=== PATIENT | male | born 1980 | race Caucasian/White ===

== ENCOUNTER 2023-08-05 17:35 | Emergency (ER) | payer OTHER, SELFPAY ==
--- NOTE | ~2023-08-05 | CT_ITS ---
CT HEAD WITHOUT IV CONTRAST CT MAXILLOFACIAL WITHOUT IV CONTRAST INDICATION: Seizure. Fall. Left jaw pain. COMPARISON: None available TECHNIQUE: Multidetector CT acquisitions of the head and maxillofacial region were obtained without IV contrast. Multiplanar reformats were acquired and utilized for image interpretation. This CT examination was performed using dose optimization techniques as appropriate, variously including the following: *Automated exposure control *Adjustment of mA and/or kV according to patient size (this includes techniques or standardized protocols for targeted exams where dose is matched to indication/reason for exam; i.e. extremities or head) *Use of iterative reconstruction technique FINDINGS: HEAD: There is no intracranial hemorrhage, hydrocephalus, extra-axial surface collection, midline shift, or other herniation pattern. Alva to white matter differentiation is diffusely maintained without evidence of an evolved acute territorial infarct. The basilar cisterns are preserved. No significant soft tissue abnormality. No acute osseous abnormality. MAXILLOFACIAL: No acute maxillofacial fractures. There is mild mucosal thickening within the maxillary sinuses bilaterally, the left sphenoid sinus, and the left frontal sinus. Right greater than left mastoid effusions. CT/CT head/brain wo IV con IMPRESSION: - No acute intracranial findings. - No acute maxillofacial fractures.
--- NOTE | ~2023-08-05 | CT_ITS ---
CT HEAD WITHOUT IV CONTRAST CT MAXILLOFACIAL WITHOUT IV CONTRAST INDICATION: Seizure. Fall. Left jaw pain. COMPARISON: None available TECHNIQUE: Multidetector CT acquisitions of the head and maxillofacial region were obtained without IV contrast. Multiplanar reformats were acquired and utilized for image interpretation. This CT examination was performed using dose optimization techniques as appropriate, variously including the following: *Automated exposure control *Adjustment of mA and/or kV according to patient size (this includes techniques or standardized protocols for targeted exams where dose is matched to indication/reason for exam; i.e. extremities or head) *Use of iterative reconstruction technique FINDINGS: HEAD: There is no intracranial hemorrhage, hydrocephalus, extra-axial surface collection, midline shift, or other herniation pattern. Alva to white matter differentiation is diffusely maintained without evidence of an evolved acute territorial infarct. The basilar cisterns are preserved. No significant soft tissue abnormality. No acute osseous abnormality. MAXILLOFACIAL: No acute maxillofacial fractures. There is mild mucosal thickening within the maxillary sinuses bilaterally, the left sphenoid sinus, and the left frontal sinus. Right greater than left mastoid effusions. CT/CT facial bones wo IV con IMPRESSION: - No acute intracranial findings. - No acute maxillofacial fractures.
[2023-08-05 17:40] VITALS: BP 118/98; PULSE 96; O2SAT 98
[2023-08-05 17:50] VITALS: BP 116/70; PULSE 84; RESP 18; TEMP 36.6; O2SAT 96
[2023-08-05 19:05] VITALS: BP 113/67; PULSE 78; O2SAT 97
[2023-08-05 19:14] VITALS: BP 133/80; PULSE 80; RESP 14; TEMP 36.5; O2SAT 98; BMI 32.0
[2023-08-05 19:33] LABS: Glucose, Whole Blood 108 mg/dL (60-115)
--- NOTE | 2023-08-05 19:34 | ED_ITS ---
HPI - Seizure General Chief Complaint: Seizure Stated Complaint: from мария, juan carlos w head strike, loc Time Seen by Provider: 08/05/23 18:55 Source: patient and EMS Mode of arrival: EMS Limitations: no limitations History of Present Illness HPI Narrative: Patient's schizophrenia came from [facility] for having an episode of generalized tonic-clonic seizure hitting his left side of the head to the angle of the wall. Patient was at [facility] for last 2 days and was been transferred to [facility] today did not take his Keppra 1000 mg in the morning. No other injuries no tongue bite Related Data Allergies Allergy/AdvReac Type Severity Reaction Status Date / Time ibuprofen Allergy Severe Anaphylaxis Verified 08/05/23 19:54 atorvastatin AdvReac Intermediate Abdominal Verified 08/05/23 19:54 Pain Review of Systems 2 Review of Systems: Yes all other systems are reviewed and are negative [facility] Past Medical History Medical History Hyperlipidemia Seizure disorder Schizophrenia Social History Social History Advance Directives: No Advance Directives Information Provided: No Physical Exam 2 Vital Signs: Vital Signs: Last Vital Signs Temp 97.7 F 08/05/23 19:14 Pulse 78 08/05/23 22:29 Resp 14 08/05/23 19:14 BP 130/74 08/05/23 22:29 Pulse Ox 96 08/05/23 22:29 O2 Del Method Room Air 08/05/23 22:29 BMI result Body Mass Index 32.0 Appearance: Alert. Oriented X3. No acute distress. Eyes: PERRLA, No Nystagmus HEENT: Pharynx normal. Oral Mucosa moist slight bruising and tenderness on the left temporal area no tongue Neck: Normal inspection. Neck supple. CVS: Normal heart rate and rhythm. Pulses normal. Respiratory: No respiratory distress. Equal air entry bilateral, no wheezing/rales/rhonchi Abdomen: Soft and nontender. Bowel sounds are present, no mass palpable, no CVA tenderness Skin: Skin warm and dry. Normal skin color. Normal skin turgor. Extremities: No lower extremity edema. No calf tenderness Neuro: Oriented X 3. No motor deficit. Medications Administered Discontinued Medications Generic Name Dose Route Start Last Admin Trade Name Freq PRN Reason Stop Dose Admin Levetiracetam 1,000 mg in 100 mls @ 400 mls/hr 08/05/23 19:55 08/05/23 20:13 Keppra IV 08/05/23 20:09 400 mls/hr ONCE ONE Administration Morphine Sulfate 4 mg 08/05/23 19:56 08/05/23 20:12 Morphine Sulfate 4 Mg/Ml Cartridge IVPUSH 08/05/23 19:57 4 mg ONCE ONE Administration Protocol Ondansetron HCl 4 mg 08/05/23 19:56 08/05/23 20:12 Ondansetron Hcl 4 Mg/2 Ml Vial IVPUSH 08/05/23 19:57 4 mg ONCE ONE Administration Medical Decision Making Medical Decision Making [facility] Narrative: Patient with recurrence of seizure secondary to missing his dose of Keppra which was given IV in ER CT scan of the face and the head was negative for acute will discharge patient back to [facility] advised to continue give him Keppra 1000 mg twice daily as scheduled Differential Diagnosis Differential Diagnoses: The differential diagnosis associated with the presentation includes Seizure disorder/SDH/SAH/mandible fracture Lab Data [facility] Lab Attestation statement: I reviewed the patient's lab results. 08/05/23 21:07 08/05/23 21:07 Labs: Lab Results 08/05/23 08/05/23 Range/Units 19:29 21:07 WBC 5.7 (4.8-10.8) X10*3/uL RBC 4.86 (4.60-5.80) X10*6/uL Hgb 13.7 L (14.0-18.0) g/dl Hct 40.4 L (42.0-52.0) % MCV 83.1 (80.0-98.0) fL MCH 28.2 (27.0-33.0) pg MCHC 33.9 (31.0-36.0) g/dl RDW 14.3 (11.0-16.0) % Plt Count 188 (160-400) X10*3/uL MPV 9.3 L (9.4-12.4) fL Immature Gran % (Auto) 0.2 (0.0-0.4) % Neut % (Auto) 46.7 (45-73) % Lymph % (Auto) 38.1 (20-40) % [place] % (Auto) 10.1 (2-11) % Eos % (Auto) 4.2 H (0-4) % Baso % (Auto) 0.7 (0-2) % Lymph # (Auto) 2.2 (1.2-4.9) X10*3/uL [place] # (Auto) 0.6 (0.1-1.2) X10*3/uL Eos # (Auto) 0.2 (0.0-0.4) X10*3/uL Baso # (Auto) 0.0 (0.0-0.2) X10*3/uL Abs Immat Gran (auto) 0.01 (0.00-0.03) X10*3/uL Absolute Neuts (auto) 2.6 (2.0-8.3) x10*3/uL Absolute Nucleated RBC 0.000 (0.0-0.012) X10*3/uL Nucleated RBC % (auto) 0.0 (0.0-0.2) /100WBC Sodium 141 (135-145) mmol/L Potassium 4.0 (3.3-5.1) mmol/L Chloride 107 (96-108) mmol/L Carbon Dioxide 25 (22-29) mmol/L Anion Gap 13 (12-20) BUN 19 H (9-16) mg/dL Creatinine 1.13 (0.5-1.4) mg/dL Estim Creat Clear Calc 91.4 Estimated GFR > 60 POC Glucose 108 (60-115) mg/dL Random Glucose 93 (60-115) mg/dL Calcium 9.3 (8.4-10.2) mg/dL Magnesium 2.0 (1.6-2.6) mg/dL Total Bilirubin 0.3 (0.0-1.0) mg/dL AST 26 (5-37) U/L ALT 30 (0-40) U/L Alkaline Phosphatase 72 (39-117) U/L Total Protein 7.1 (6.5-8.0) g/dL Albumin 3.9 (3.5-5.0) g/dL Discharge Plan Discharge Clinical Impression: Epileptic seizure Patient Disposition: Xfer Other Transfer Details: CT scan of the head and face bone were negative labs were stable continue [facility] 1000 mg twice daily as prescribed Instructions: Epilepsy (ED) Additional Instructions: Continue medication Keppra 1000 mg twice daily as prescribed and follow-up with the neurologist/psychiatrist
[2023-08-05] MEDS: Morphine Sulfate 4 MG/ML CARTRIDGE IVPUSH (20:12)
[2023-08-05] MEDS: ondansetron HCL 4 MG/2 ML VIAL IVPUSH (20:12)
[2023-08-05] MEDS: levETIRAcetam in NaCl (iso-os) 1,000 MG/100 ML PIGGYBACK 400 MG IV (20:13)
[2023-08-05 21:12] LABS: MANUAL DIFF FLAG NO
[2023-08-05 21:13] LABS: Basophils Percent Auto 0.7 % (0-2); Eosinophils Absolute Auto 0.2 X10*3/uL (0.0-0.4); Eosinophils Percent Auto 4.2 % (0-4); Hematocrit 40.4 % (42.0-52.0); Hemoglobin 13.7 g/dl (14.0-18.0); Imm Gran Abs Auto 0.01 X10*3/uL (0.00-0.03); Imm Gran Pct Auto 0.2 % (0.0-0.4); Lymphocytes Absolute Auto 2.2 X10*3/uL (1.2-4.9); Lymphocytes Percent Auto 38.1 % (20-40); Mean Corpuscular HGB Conc 33.9 g/dl (31.0-36.0); Mean Corpuscular Hemoglobin 28.2 pg (27.0-33.0); Mean Corpuscular Volume 83.1 fL (80.0-98.0); Mean Platelet Volume 9.3 fL (9.4-12.4); Monocytes Absolute Auto 0.6 X10*3/uL (0.1-1.2); Monocytes Percent Auto 10.1 % (2-11); Neutrophils Absolute Auto 2.6 x10*3/uL (2.0-8.3); Neutrophils Percent Auto 46.7 % (45-73); Platelet Count 188 X10*3/uL (160-400); Red Blood Count 4.86 X10*6/uL (4.60-5.80); Red Cell Distribution Width 14.3 % (11.0-16.0); White Blood Count 5.7 X10*3/uL (4.8-10.8)
[2023-08-05 21:26] LABS: Alanine Aminotransferase 30 U/L (0-40); Albumin Level 3.9 g/dL (3.5-5.0); Alkaline Phosphatase 72 U/L (39-117); Anion Gap 13 (12-20); Aspartate Amino Transferase 26 U/L (5-37); Bilirubin Total 0.3 mg/dL (0.0-1.0); Blood Urea Nitrogen 19 mg/dL (9-16); Calcium 9.3 mg/dL (8.4-10.2); Carbon Dioxide 25 mmol/L (22-29); Chloride 107 mmol/L (96-108); Creatinine Clr Calc Pharmacy 91.4; Estimated Glomerular Filt Rate > 60; Glucose Random 93 mg/dL (60-115); Sodium 141 mmol/L (135-145); Total Protein 7.1 g/dL (6.5-8.0)
[2023-08-05 22:29] VITALS: BP 130/74; PULSE 78; O2SAT 96
--- NOTE | 2023-08-05 22:46 | MHC.EDTECH ---
Addendum entered by Rosie Helton 08/05/23 22:46: [id number] Original Note: Booked with [facility], ETA 230
[2023-08-05] MEDS: Acetaminophen 325 MG TABLET 650 MG PO (22:54)
[2023-08-05 23:32] VITALS: BP 112/69; PULSE 77; RESP 14; TEMP 36.6; O2SAT 96
== END 2023-08-05 23:35 | disposition other institution (70) ==
PROVIDERS: Emergency Provider Internal Medicine
DX: G40.909 Epilepsy, unspecified, not intractable, without status epilepticus (principal); E78.5 Hyperlipidemia, unspecified; Z79.899 Other long term (current) drug therapy
CPT/HCPCS: 36415; 70450; 70486; 80053; 82947; 83735; 85025; 96374; 96375; 99284; J1953; J2270; J2405

== ENCOUNTER 2023-08-07 18:45 | Emergency (ER) | payer OTHER, SELFPAY ==
--- NOTE | ~2023-08-07 | CT_ITS ---
EXAMINATION: NONCONTRAST HEAD CT NONCONTRAST CERVICAL SPINE CT INDICATION INFORMATION: Unwitnessed fall COMPARISON: 08/05/2023 TECHNIQUE: Separate noncontrast CT examinations of the head and cervical spine were performed. Coronal head CT images and coronal and sagittal cervical spine images were created at the technologist workstation. DLP: 1199 mGy-cm DOSE LOWERING TECHNIQUES: This CT examination was performed using dose optimization techniques as appropriate, variously including the following: - Automated exposure control - Adjustment of mA and/or kV according to patient size (this includes techniques or standardized protocols for targeted exams were dose is matched to indication/reason for exam; i.e. extremities or head) - Use of iterative reconstruction technique FINDINGS: Head: There is no evidence of acute intracranial hemorrhage or territorial infarction. No abnormal mass-effect or midline shift is seen. Alva to white matter differentiation is well preserved. No extra-axial fluid collections are identified. The ventricles are normal in size. There is no abnormal attenuation within the brain parenchyma. No acute fracture is seen. There is left frontal scalp soft tissue swelling. Partial opacification of the right mastoid air cells. Partial opacification of the left ethmoid air cells. Mucosal thickening of the left maxillary sinus. Cervical spine: There is anatomic alignment of the vertebral bodies and posterior elements. Vertebral body heights are maintained. Intervertebral disc spaces are preserved. No evidence of acute fracture. No prevertebral soft tissue swelling. Visualized portions of the lung apices are unremarkable. The thyroid gland is unremarkable. CT/CT cervical spine wo IV con IMPRESSION: 1. No acute intracranial findings. Left frontal scalp soft tissue swelling. 2. No acute findings identified in the cervical spine.
--- NOTE | ~2023-08-07 | XR_ITS ---
EXAMINATION: XR WRIST, LEFT CLINICAL INFORMATION: Pain after fall COMPARISON: None available. TECHNIQUE: Four views of the left wrist. FINDINGS: The bones and soft tissues are normal. No fracture. Alignment is anatomic with normal joint spaces. No erosions or abnormal soft tissue calcifications. XR/XR wrist LT min 3V IMPRESSION: No acute bony abnormality.
[2023-08-07 19:01] VITALS: BP 114/75; BP 156/82; PULSE 75; PULSE 82; RESP 26; TEMP 37.1; O2SAT 96; BMI 32.9
--- NOTE | 2023-08-07 19:05 | MHC.EDTECH ---
PATIENT WAS BIBA FROM [facility] ,VITALS TAKEN ,PATIENT WAS HOOKED UP TO [employer] ,SEIZURE PADS IN PLACE .
--- NOTE | 2023-08-07 19:13 | ECG_ITS ---
Test Reason : SEIZURE Blood Pressure : / mmHG Vent. Rate : 081 BPM Atrial Rate : 081 BPM P-R Int : 142 ms QRS Dur : 104 ms QT Int : 386 ms P-R-T Axes : 019 067 016 degrees QTc Int : 448 ms Normal sinus rhythm Normal ECG No previous ECGs available Referred By: Tiffanie Godinez Electronically Signed By:Timur Cummings
[2023-08-07 19:32] LABS: MANUAL DIFF FLAG NO
[2023-08-07 19:39] LABS: Basophils Percent Auto 0.7 % (0-2); Eosinophils Absolute Auto 0.3 X10*3/uL (0.0-0.4); Eosinophils Percent Auto 4.2 % (0-4); Hemoglobin 13.7 g/dl (14.0-18.0); Imm Gran Abs Auto 0.06 X10*3/uL (0.00-0.03); Lymphocytes Absolute Auto 2.1 X10*3/uL (1.2-4.9); Lymphocytes Percent Auto 35.6 % (20-40); Mean Corpuscular HGB Conc 34.3 g/dl (31.0-36.0); Mean Corpuscular Hemoglobin 28.2 pg (27.0-33.0); Mean Corpuscular Volume 82.5 fL (80.0-98.0); Mean Platelet Volume 9.8 fL (9.4-12.4); Monocytes Absolute Auto 0.6 X10*3/uL (0.1-1.2); Monocytes Percent Auto 10.7 % (2-11); Neutrophils Absolute Auto 2.8 x10*3/uL (2.0-8.3); Neutrophils Percent Auto 47.8 % (45-73); Platelet Count 190 X10*3/uL (160-400); Red Blood Count 4.85 X10*6/uL (4.60-5.80); Red Cell Distribution Width 14.1 % (11.0-16.0); White Blood Count 5.9 X10*3/uL (4.8-10.8)
[2023-08-07 19:47] LABS: COVID-19 Test Negative (Negative); IDNOW Serial# 6674DD1D
[2023-08-07 19:51] LABS: IDNOW Serial# 16C4AD1C; Influenza A Negative (Negative); Influenza B2 Negative (Negative)
[2023-08-07 19:53] LABS: Alanine Aminotransferase 32 U/L (0-40); Albumin Level 4.2 g/dL (3.5-5.0); Alkaline Phosphatase 70 U/L (39-117); Anion Gap 13 (12-20); Aspartate Amino Transferase 25 U/L (5-37); Bilirubin Total 0.3 mg/dL (0.0-1.0); Blood Urea Nitrogen 16 mg/dL (9-16); Calcium 9.7 mg/dL (8.4-10.2); Carbon Dioxide 23 mmol/L (22-29); Chloride 107 mmol/L (96-108); Creatinine Clr Calc Pharmacy 106.9; Estimated Glomerular Filt Rate > 60; Ethanol < 10 mg/dL; Glucose Random 114 mg/dL (60-115); Potassium 4.1 mmol/L (3.3-5.1); Sodium 139 mmol/L (135-145); Total Protein 7.5 g/dL (6.5-8.0)
[2023-08-07 20:00] VITALS: BP 107/69; PULSE 79; RESP 16; TEMP 36.9; O2SAT 97
--- NOTE | 2023-08-07 20:05 | MHC.EDTECH ---
EKG TAKEN AND WAS READ BY PROVIDER .
--- NOTE | 2023-08-07 20:21 | PC.NURSE ---
Pt in CT.
--- NOTE | 2023-08-07 20:33 | ED_ITS ---
HPI - Seizure General Chief Complaint: Seizure Stated Complaint: seizure Time Seen by Provider: 08/07/23 19:27 Source: patient and EMS Mode of arrival: EMS History of Present Illness HPI Narrative: 42-year-old male who arrives via EMS after an unwitnessed seizure with head strike and loss of consciousness, patient has a history of seizures and states he has been taking his medications. Patient denies being on blood thinners Related Data Allergies Allergy/AdvReac Type Severity Reaction Status Date / Time ibuprofen Allergy Severe Anaphylaxis Verified 08/05/23 19:54 atorvastatin AdvReac Intermediate Abdominal Verified 08/05/23 19:54 Pain Review of Systems 2 Review of Systems: Pertinent positives and negatives as stated in HPI PMFSH Past Medical History Source: nursing notes reviewed Medical History Hyperlipidemia Seizure disorder Schizophrenia Social History Social History Smoked in Last 30 Days: No Use of substances other than those prescribed or required for medical reasons: No Advance Directives: No Advance Directives Information Provided: No Physical Exam 2 Vital Signs: Vital Signs: Last Vital Signs Temp 98.5 F 08/07/23 20:00 Pulse 79 08/07/23 20:00 Resp 16 08/07/23 20:00 BP 107/69 08/07/23 20:00 Pulse Ox 97 08/07/23 20:00 O2 Del Method Room Air 08/07/23 20:00 BMI result Body Mass Index 32.9 VITAL SIGNS: Reviewed. GENERAL: Well developed, well nourished, in no acute distress. HEAD: Normocephalic/contusion to left forehead EYES: PERRLA, EOMI EARS: Ext canals without abnormality NOSE: Nares patent bilateral OROPHARYNX: no oral lesions noted, posterior pharynx clear NECK: Supple, no adenopathy LUNGS: Normal breath sounds. No adventitious sounds or accessory muscle use. SpO2<97> CARDIOVASCULAR: Regular rate and rhythm without noted murmurs ABDOMEN: Soft, non-tender, non-distended with bowel sounds. MUSCULOSKELETAL: No tenderness, deformities, or effusions noted on gross inspection, there is contusion noted to anterior aspect of left shoulder. EXTREMITIES: No cyanosis, clubbing or edema. LEFT WRIST: Tenderness to palpation without obvious deformity SKIN: Inspection of the skin reveals no rashes NEUROLOGIC: Alert and oriented x 4. Strength and sensation to light touch were grossly intact x 4. Medications Administered Discontinued Medications Generic Name Dose Route Start Last Admin Trade Name Vicky PRN Reason Stop Dose Admin Acetaminophen 975 mg 08/07/23 20:58 08/07/23 21:10 Acetaminophen 325 Mg Tablet PO 08/07/23 20:59 975 mg ONCE ONE Administration Sodium Chloride 1,000 mls @ 999 mls/hr 08/07/23 21:15 08/07/23 22:02 Ns IV 08/07/23 22:15 999 mls/hr .Q1H1M CLOVER Administration Medical Decision Making Medical Decision Making MDM Narrative: 42-year-old male with witnessed seizure, provided with Tylenol for soft tissue injuries. Will rule out infection, anemia, electrolyte derangements, drug level. I reviewed all investigations and hematologic indices are negative for leukocytosis or left shift, there is a stable normocytic anemia without thrombocytopenia. Chemistry to seizure grossly within normal limits without any noted derangements. Urinalysis is negative for UTI or hematuria. Keppra level is a send out, patient was provided with evening dose of Keppra. ETOH undetectable. Viral testing negative for COVID-19/influenza. CT of the head without evidence to suggest intracranial hemorrhage or mass effect and cervical spine is negative for evidence of fracture/subluxation. X-ray of the wrist does not demonstrate fracture or dislocation. My interpretation is that patient continues to increase the serum levels of his antiseizure medication, the supervising medical doctor at the facility needs to follow-up on the lab work and make necessary referrals as indicated. Differential Diagnosis Differential Diagnoses: The differential diagnosis associated with the presentation includes Admission/Observation Consideration of admission/observation: Escalation of care including admission/observation considered Lab Data [facility] Lab Attestation statement: I reviewed the patient's lab results. Please see the discussion above 08/07/23 19:27 08/07/23 19:27 Labs: Lab Results 08/07/23 08/07/23 Range/Units 19:27 22:22 WBC 5.9 (4.8-10.8) X10*3/uL RBC 4.85 (4.60-5.80) X10*6/uL Hgb 13.7 L (14.0-18.0) g/dl Hct 40.0 L (42.0-52.0) % MCV 82.5 (80.0-98.0) fL MCH 28.2 (27.0-33.0) pg MCHC 34.3 (31.0-36.0) g/dl RDW 14.1 (11.0-16.0) % Plt Count 190 (160-400) X10*3/uL MPV 9.8 (9.4-12.4) fL Immature Gran % (Auto) 1.0 H (0.0-0.4) % Neut % (Auto) 47.8 (45-73) % Lymph % (Auto) 35.6 (20-40) % [place] % (Auto) 10.7 (2-11) % Eos % (Auto) 4.2 H (0-4) % Baso % (Auto) 0.7 (0-2) % Lymph # (Auto) 2.1 (1.2-4.9) X10*3/uL [place] # (Auto) 0.6 (0.1-1.2) X10*3/uL Eos # (Auto) 0.3 (0.0-0.4) X10*3/uL Baso # (Auto) 0.0 (0.0-0.2) X10*3/uL Abs Immat Gran (auto) 0.06 H (0.00-0.03) X10*3/uL Absolute Neuts (auto) 2.8 (2.0-8.3) x10*3/uL Absolute Nucleated RBC 0.000 (0.0-0.012) X10*3/uL Nucleated RBC % (auto) 0.0 (0.0-0.2) /100WBC Sodium 139 (135-145) mmol/L Potassium 4.1 (3.3-5.1) mmol/L Chloride 107 (96-108) mmol/L Carbon Dioxide 23 (22-29) mmol/L Anion Gap 13 (12-20) BUN 16 (9-16) mg/dL Creatinine 0.98 (0.5-1.4) mg/dL Estim Creat Clear Calc 106.9 Estimated GFR > 60 Random Glucose 114 (60-115) mg/dL Calcium 9.7 (8.4-10.2) mg/dL Total Bilirubin 0.3 (0.0-1.0) mg/dL AST 25 (5-37) U/L ALT 32 (0-40) U/L Alkaline Phosphatase 70 (39-117) U/L Total Protein 7.5 (6.5-8.0) g/dL Albumin 4.2 (3.5-5.0) g/dL Urine Color Yellow Urine Appearance Clear Urine pH 5.5 (5.0-9.0) Ur Specific [place] <= 1.005 (1.005-1.025) Urine Protein Negative (Neg-Trace) mg/dL Urine Glucose (UA) Negative (Negative) mg/dL Urine Ketones Negative (Negative) mg/dL Urine Blood Negative (Negative) Urine Nitrite Negative (Negative) Ur Leukocyte Esterase Negative (Negative) Ethyl Alcohol < 10 mg/dL COVID-19 (SACHIN) Negative (Negative) COVID-19 Clin Com See Note Influenza Type A (KOLBY) Negative (Negative) Influenza Type B (KOLBY) Negative (Negative) Influenza A & B Note See Note Independent Interpretation I performed an independent interpretation of an: EKG Interpretation: Normal sinus rhythm, HR-81, no STEMI, [place]/QRS/QTC is within normal limits. Radiology Impression Discussion of test interpretation with radiology: I have reviewed the radiologist's reading. Radiologist Impression: Please see the discussion above External Record Review External record reviewed: Outpatient record, Prior outpatient labs and Prior outpatient radiology Critical Care Time Critical Care Time Critical Care Time: Yes Total Critical Care Time: 45 Attestation: I personally attest to this time spent taking care of the patient. Discharge Plan Discharge Clinical Impression: Epileptic seizure, Contusion of soft tissue, Scalp contusion Patient Disposition: Xfer Other Instructions: Epilepsy (ED), Recurrent Seizures in Adults (ED) Additional Instructions: 1. Reanude todos los medicamentos caseros seg?n lo recetado; es especialmente importante que contin?e tomando klarissa medicamentos anticonvulsivos. 2. Fermin un seguimiento con gutierrez proveedor de atenci?n primaria en los pr?ximos 1 o 2 d?as. Regrese a la vipul de emergencias si los s?ntomas empeoran. 1. Resume all home medications as prescribed, it is especially important that you continue to take your anti seizure medication. 2. Please follow-up with the primary care provider in the next 1-2 days. Return to the ER for any worsening symptoms. Print Language: Marshallese
[2023-08-07] MEDS: Acetaminophen 325 MG TABLET 975 MG PO (21:10)
[2023-08-07] MEDS: 0.9 % Sodium Chloride 1,000 ML 999 ML IV (22:02)
[2023-08-07 22:30] LABS: Appearance Urine Clear; Color Urine Yellow; Glucose Urine UA Negative (Negative); Leukocyte Esterase Urine Negative (Negative); Nitrite Urine Negative (Negative); PH 5.5 (5.0-9.0); Specific Gravity - Urine <= 1.005 (1.005-1.025); Urine Blood Negative (Negative); Urine Ketones Negative (Negative); Urine Protein Negative (Neg-Trace)
[2023-08-07] MEDS: Lidocaine 4 % Patch ADH..PATCH 1 PATCH TRANSDERMA (23:01)
[2023-08-07] MEDS: levETIRAcetam 1,000 MG TABLET 1000 MG PO (23:02)
[2023-08-08 00:49] LABS: Amphetamine Screen Urine Not Detected (Not Detect); Barbiturates, Urine Not Detected (Not Detect); Benzodiazepines Screen Urine Not Detected (Not Detect); Cannabinoid Screen Urine Not Detected (Not Detect); Cocaine Screen Urine Not Detected (Not Detect); Fentanyl, urine Not Detected (Not Detect); Opiate Screen Urine Not Detected (Not Detect); Phencyclidine Screen Urine Not Detected (Not Detect)
== END 2023-08-08 02:24 | disposition other institution (70) ==
PROVIDERS: Emergency Provider Student in an Organized Health Care Education/Training Program
DX: G40.909 Epilepsy, unspecified, not intractable, without status epilepticus (principal); Z91.148 Patient's other noncompliance with medication regimen for other reason; S00.83XA Contusion of other part of head, initial encounter; S40.012A Contusion of left shoulder, initial encounter; W18.39XA Other fall on same level, initial encounter; M25.532 Pain in left wrist; E78.5 Hyperlipidemia, unspecified; F20.9 Schizophrenia, unspecified; Y93.9 Activity, unspecified; Y92.9 Unspecified place or not applicable; Y99.9 Unspecified external cause status; Z11.52 Encounter for screening for COVID-19
CPT/HCPCS: 36415; 70450; 72125; 73110; 80053; 80177; 80307; 81003; 85025; 87502; 87635; 93005; 96360; 99284; 99285

== ENCOUNTER → 2023-08-07 19:13 | Outpatient (BNV) | payer OTHER, SELFPAY | PROVIDERS: Emergency Provider Student in an Organized Health Care Education/Training Program; Visit Provider Internal Medicine Cardiovascular Disease | DX: G40.89 Other seizures (principal) | CPT/HCPCS: 93010 ==

== ENCOUNTER 2025-04-08 13:26 | Observation (INO) | payer OTHER, SELFPAY ==
--- OUTSIDE RECORDS SUMMARY | 2025-04-05 16:26 | XMS_ITS | Encounter Summary ---
Author Organization [facility] Address [address] [place] [address] Care Team Providers Care Precision Dyer Name Role Phone Physician, Pcp Unknown Primary Care Provider Gypsy vailable Reason for Visit * Reason Comments Suicidal Encounter Details Date Type Department Care Team (Late st Contact Info) Description 04/05/2025 4:26 PM EDT - 04/06/2025 5:25 PM EDT Emergency [facility] Emergency [address] [place] [address] Eva Ellis MD [address] [place] [address] Jermaine Downey MD [address] [place] [address] Hannah Lee MD [address] [place] [address] Joseph Watson MD [address] [place] [address] Psychosis, unspecified psychosis type (CMS/HCC V24, CMS/HCC V28) (Primary Dx); Combative behavior; Fall, initial encounter; Auditory hallucination; Visual hallucinations Discharge Disposition: Send to ED Social History Tobacco Use Types Packs/Day Years Used Date Smoking Tobacco: Never Assessed Sex and Gender Information Value Date Recorded Sex Assigned at Not on file Legal Sex Male 5:05 AM EST Gender Identity Not on file Sexual Orientation Not on file documented as of this encounter Last Filed Vital Signs Vital Sign Reading Time Taken Comments Blood Pressure 128/82 04/06/2025 11:00 AM EDT Pulse 67 04/06/2025 11:00 AM EDT Temperature 36.5 C (97.7 F) 04/06/2025 11:00 AM EDT Respiratory Rate 18 04/06/2025 11:00 AM EDT Oxygen Saturation 100% 04/06/2025 11:00 AM EDT Inhaled Oxygen Concentration - - Weight 75.8 kg (167 lb) 04/05/2025 5:07 PM EDT Height 170.2 cm (5' 7 ) 04/05/2025 5:07 PM EDT Body Mass Index 26.16 04/05/2025 5:07 PM EDT documented in this encounter Functional Status * Are you deaf or do you have serious difficulty hearing? Answer Date of Assessment Author No 04/05/2025 7:43 PM EDT Jonny Feng RN * Are you blind or do you have serious difficulty seeing, even when wearing glasses? Answer Date of Assessment Author No 04/05/2025 7:43 PM EDT Jonny Feng RN * Do you have serious difficulty walking or climbing stairs? Answer Date of Assessment Author No 04/05/2025 7:43 PM EDT Jonny Feng RN * Do you have serious difficulty dressing or bathing? Answer Date of Assessment Author No 04/05/2025 7:43 PM JASONT Jonny Feng RN * Because of a physical, mental, or emotional condition, do you have serious difficulty doing errandsalone such as visiting the doctor? Answer Date of Assessment Author No 04/05/2025 7:43 PM EDT Jonny Feng RN * Calculated C-SSRS Risk Score (Lifetime/Recent) Answer Date of Assessment Author High Risk 04/05/2025 5:13 PM JASONT Zahida Vazquez RN * Tripp Suicide Severity Rating Scale (Screener/Recent Self-Report) Question Answer Date of Assessment Author 1. Wish to be (Past 1 Month) Yes 5:13 PM JASONT Zahida Vazquez RN 2. Non-Specific Active Suici marni Thoughts (Past 1 Month) Yes 04/05/2025 5:13 PM JASONT Deny Vazquez, BRIGIDO 3. Active Suicidal Ideation with any Methods (Not Plan) Without Intent to Act (Past 1 Month) Yes 04/05/2025 5:13 PM EDT Zahida Vazquez RN 4. Active Suicidal Ideation with Some Intent to Act, Without Specific Plan (Past 1 Month) Yes 04/05/2025 5:13 PM JASONT Zahida Vazquez RN 5. Active Suicidal Ideation with Specific Plan and Intent (Past 1 Month) Yes 04/05/2025 5:13 PM JASONT Zahida Vazquez RN 6. Suicidal Behavior (Lifetime) No 5:13 PM JASONT Zahida Vazquez RN documented as of this encounter Mental Status * Because of a physical, mental, or emotional condition, do you have serious difficulty concentrating, remembering, or making decisions? (5 years old or older) Answer Entry Date Author No 04/05/2025 7:43 PM EDT Jonny Feng RN documented in this encounter Medications at Time of Discharge ALPRAZolam (XANAX) 2 mg tablet Take 1 tablet (2 mg total) by mouth 2 (two) times a day. amantadine (SYMMETREL) 100 mg capsule Take 1 capsule (100 mg total) by mouth 1 (one) time each day in the morning. divalproex (DEPAKOTE) [address] tablet Take 2 tablets (1,000 mg total) by mouth 2 (two) times a day. eszopiclone (LUNESTA) 3 mg tablet Take 1 tablet (3 mg total) by mouth at bedtime. Gavilax 17 gram/dose oral powder Take 17 g by mouth 1 (one) time each day. 02/26/2025 naltrexone (DEPADE) 50 mg tablet Take 1 tablet (50 mg total) by mouth 1 (one) time each day in the morning. PARoxetine (PAXIL) 30 mg tablet Take 1 tablet (30 mg total) by mouth at bedtime. prazosin (MINIPRESS) 2 mg capsule Take 1 capsule (2 mg total) by mouth at bedtime. at bedtime 02/26/2025 thiamine mononitrate, vit B1, 100 mg tablet Take 1 tablet (100 mg total) by mouth 1 (one) time each day in the morning. 01/23/2025 traZODone (DESYREL) 100 mg tablet Take 1 tablet (100 mg total) by mouth at bedtime. at bedtime. 03/21/2025 Vraylar 3 mg capsule Take 1 capsule (3 mg total) by mouth at bedtime. at bedtime documented as of this encounter Discharge Disposition Disposition Code Departure Means Destination Comment s Send to ED documented in this encounter Progress Notes * Zahida Vazquez RN - 04/06/2025 2:39 PM EDT Nurse to Nurse report given to BRIGIDO Mariee at [facility]. Ambulance booked for 1730. Zahida Vazquez RN 04/06/25 [id number] * Iliana Tolentino LCSW - 04/06/2025 2:18 PM EDT BED FOUND- Patient has been accepted to [facility] by Dr. Alex Stubbs for 6:00pm. [address] [place] [id number]. The requested that he receive his daily medications prior to transportation. * Hailey Martínez - 04/06/2025 11:35 AM EDT Images from the original note were not included. Medication History Post Anesthesia Care Unit Nurse Medication history has been obtained for Valentin Howard (1980) by a Medication Historianand the home med list has been updated. History obtained from conversation with: Unable to obtain direct contact Additional Source(s) of History: Retail Pharmacy []Updated Patient Preferred Pharmacy The Patient's Home Medications include: HOME MEDICATIONS INSTRUCTIONS NOTES ALPRAZolam (XANAX) 2 mg tablet Take 1 tablet (2 mg total) by mouth 2 (two) times a day. amantadine (SYMMETREL) 100 mg capsule Take 1 capsule (100 mg total) by mouth 1 (one) time each day in the morning. ADDITION divalproex (DEPAKOTE) [address] tablet Take 2 tablets (1,000 mg total) by mouth 2 (two) times a day. eszopiclone (LUNESTA) 3 mg tablet Take 1 tablet (3 mg total) by mouth at bedtime. Gavilax 17 gram/dose oral powder Take 17 g by mouth 1 (one) time each day. ADDITION naltrexone (DEPADE) 50 mg tablet Take 1 tablet (50 mg total) by mouth 1 (one) time each day in the morning. PARoxetine (PAXIL) 30 mg tablet Take 1 tablet (30 mg total) by mouth at bedtime. Note written 04/06/2025 1131: CHANGED FROM DAILY DOSE PER [facility] prazosin (MINIPRESS) 2 mg capsule Take 1 capsule (2 mg total) by mouth at bedtime. at bedtime thiamine mononitrate, vit B1, 100 mg tablet Take 1 tablet (100 mg total) by mouth 1 (one) time eachday in the morning. ADDITION traZODone (DESYREL) 100 mg tablet Take 1 tablet (100 mg total) by mouth at bedtime. at bedtime. Vraylar 3 mg capsule Take 1 capsule (3 mg total) by mouth at bedtime. at bedtime Thank you, Hailey Martínez Medication Historian W: [phone] * Zahida Vazquez RN - 04/06/2025 9:25 AM EDT RN attempted to complete medication [facility], no answer. Rn left voicemail, awaiting call back., Zahida Vazquez RN 04/06/25 0968 * Dev Feng RN - 04/05/2025 8:14 PM EDT This RN attempted to complete patient's medication reconcilliation. Patient uses Pharmacy [facility].Pharmacy is only open 9am-5pm. Phone number for pharmacy is [phone]. Will notify oncoming RN in the morning. * Eva Ellis MD - 04/05/2025 7:00 PM EDT Restraint Face To Face Assessment Violent Restraint - Restraint initiation Vitals: BP: 110/74 (04/05 1707) Heart Rate: 71 (04/05 1707) Heart Rate Source: Monitor (04/05 1707) Temp: 36.5 ??C (97.7 ??F) (04/05 1707) Temp Source: Oral (04/05 1707) SpO2: 98 % (04/05 1707) Time restraints were placed: 7:01 PM EDT Type of restraint: Hard restraint Applied to: Left wrist, Right wrist, Left ankle , and Right ankle Description of behavior causing restraint: Verbalizing threats to self or others, Not able to follow commands for safety , Demonstrating self destructive behavior (cutting, hitting valencia, etc.), and Throwing objects with intent to injure selfor others Plan: Continue restraints Risk associated with restraint is outweighed by the risk of not using therestraint as an intervention. Eva Ellis MD * Mary Christie - 04/05/2025 4:38 PM EDT Assessed in the community by [facility] and found to be appropriate for inpatient psych. Patient endorsing SI, HI, command AH telling him to kill self and family. Patient states he has been seeing demons which is very distressing to him. Punching self in head and threatening to punch nephew. gave 2 prescribed xanax to patient which calmed down a bit still hitting head against dresser. Will begin bed search when assessment is received. * Zahida Vazquez RN - 04/05/2025 4:29 PM EDT Pt to ed by ems from home presenting with command hallucinations telling him to kill self and others (family, mother). Pt reports seeing demons. 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 Sect. 12 from N . Pt's gave him 2 mg of Xanax QUALITY ASSURANCE DIRECTOR * Eva Ellis MD - 04/05/2025 4:23 PM EDT HPI Chief Complaint Patient presents with Suicidal Patient with history, per orthopedic surgery note 03/06/2023, seen for foot pain, of MDD, HLD, BRIANNA, panic attacks, PTSD, reactive airway disease, and no psychiatric meds listed brought in by ambulancereportedly for command hallucinations, being combative and agitated with EMS, attempting to harm him self at home, making threats to family, on a section 12 by N, had given him Xanax prior to arrival presents saying that he is mentally bad . He states that he is seeing faces under the bed, hearing voices that say kill yourself . Patient says that he has not been thinking about or threatening to hurt anyone else and does not want to . Patient also reports that he fell today after feeling dizzy, hit his head, has a headache, did not lose consciousness, denies any other pain from fall. He states he has not slept for 4 days. Patient has no other medical concerns and denies abdominal pain, chest pain, shortness of breath, nausea, vomiting, difficulty walking, weakness, numbness. He denies tobacco, alcohol, other substance use. History provided by: Patient, medical records and EMS personnel History limited by: Psychiatric disorder interpreter deaf used: No [place] Coma Scale Score: 15 Patient History Medical History[1] Surgical History[2] Family History[3] Social History Tobacco Use Smoking status: Not on file Smokeless tobacco: Not on file Substance Use Topics Alcohol use: Not on file Drug use: Not on file Review of Systems Review of Systems Physical Exam ED Triage Vitals [04/05/25 1707] Temp Heart Rate Resp BP 36.5 ??C (97.7 ??F) 71 16 110/74 SpO2 Temp Source Heart Rate Source Patient Position 98 % Oral Monitor Sitting BP Location FiO2 (%) Right arm -- Physical Exam Vitals and nursing note reviewed. Constitutional: General: He is not in acute distress. Appearance: Normal appearance. He is not ill-appearing. Eyes: General: No visual field deficit. Extraocular Movements: Extraocular movements intact. Right eye: No nystagmus. Left eye: No nystagmus. Pupils: Pupils are equal, round, and reactive to light. Cardiovascular: Rate and Rhythm: Normal rate and regular rhythm. Heart sounds: Normal heart sounds. Pulmonary: Effort: Pulmonary effort is normal. Breath sounds: Normal breath sounds. Abdominal: Palpations: Abdomen is soft. Tenderness: There is no abdominal tenderness. Musculoskeletal: General: Normal range of motion. Skin: Capillary Refill: Capillary refill takes less than 2 seconds. Neurological: General: No focal deficit present. Mental Status: He is alert and oriented to person, place, and time. Cranial Nerves: Cranial nerves 2-12 are intact. Sensory: Sensation is intact. Motor: Motor function is intact. Coordination: Coordination is intact. Gait: Gait is intact. Psychiatric: Mood and Affect: Mood is anxious. Speech: Speech is delayed. ED Course & MDM Medical Decision Making Ddx: Psychosis, intracranial trauma, other intracranial pathology, under medication, UTI, intoxication, MDD, DARCIE, schizophrenia, PTSD exacerbation Patient is well-appearing with vitals WNL on RA on arrival and normal cardiopulmonary, abdominal, neurological exams, acting somewhat bizarre, slowed responses, requiring questions to be repeat. Willobtain EKG, CTH, UA, EtOH, utox, BMP, CBC given report of dizziness and fall with headstrike, pt is inconsistent historian. Will treat with analgesia. Discussed plan. Amount and/or Complexity of Data Reviewed External Data Reviewed: notes. Labs: ordered. Decision-making details documented in ED Course. Radiology: ordered. ECG/medicine tests: ordered and independent interpretation performed. Decision- making details documented in ED Course. Risk Diagnosis or treatment significantly limited by social determinants of health. ED Course as of 04/05/252027 [facility] Apr 05, 2025 1857 Per RN pt combative, agitated, wanting to leave. In to see patient who is sitting on bed, sri wants his clothes to leave, explained this is not possible due to hold, patient jumps up and goes to pod door to try to open multiple times, made multiple attempts to re-direct patient who just keeps repeating he wants to leave, has been here 3 hrs which is too long, no longer wants help, startspunching glass next to door. Patient then starts to grab materials in pod to throw at window at which point he was restrained by security, ordered chemical restraint as well as patient could not be redirected. [RG] 1950 Basic Metabolic Panel (BMP) WNL [RG] 1949 Ethanol Level: <3 Negative [RG] 1949 Drug abuse screen 8a panel, urine(!) + benzo, other neg [RG] 1949 Urinalysis with reflex microscopic ([id number])(!) No UTI [RG] 1949 12-Lead ECG 04/05/2025 18:35:00 on my read sinus bradycardia, regular, rate 49, normal intervals, no ALICE/D, no TWI, compared to 09/06/2023 was rate 90, borderline T wave inversion in lead III, no other significant change [RG] 1950 Patient signed out to Dr. Downey pending [facility], plan from crisis [RG] ED Course User Index [RG] Eva Ellis MD Clinical Impressions as of 04/05/252027 Psychosis, unspecified psychosis type (CMS/HCC V24, CMS/HCC V28) Combative behavior Fall, initial encounter Auditory hallucination Visual hallucinations Procedures Eva Ellis MD 04/05/25 1750 Eva Ellis MD 04/05/25 1806 [1] History reviewed. No pertinent past medical history. [2] History reviewed. No pertinent surgical history. [3] No family history on file. Eva Ellis MD 04/05/252031 documented in this encounter Plan of Treatment Not on file documented as of this encounter Procedures Procedure Name Priority Date/Time Associated Diagnosis Comments ECG ANNOTATED 04/06/2025 ECG 12-LEAD STAT 04/05/2025 6:[address] HEAD WO CONTRAST STAT 04/05/2025 6 :24 PM EDT URINALYSIS WITH REFLEX MICROSCOPIC STAT 04/05/2025 5:44 PM EDT URINALYSIS WITH REFLEX MICROSCOPIC STAT 04/05/2025 5:44 PM EDT DRUG ABUSE SCREEN 8A PANEL, URINE STAT 04/05/2025 5:44 PM EDT COMPLETE BLOOD COUNT STAT 04/05/2025 5:44 PM EDT ETHANOL STAT 04/05/2025 5:44 PM EDT BASIC METABOLIC PANEL STAT 04/05/2025 5:44 PM EDT documented in this encounter Results * ECG-Annotated (04/06/2025) us Provider Onbase ECG ORDERABLES Final Result * 12-Lead ECG (04/05/2025 6:35 PM EDT) Ventricular Rate ECG 49 BPM GEMUSE Atrial Rate 49 BPM GEMUSE P-R Interval 130 ms GEMUSE QRS Duration 98 ms GEMUSE Q-T Interval 464 ms GEMUSE QTc 419 ms GEMUSE P Wave [place] 14 degrees GEMUSE R [place] 46 degrees GEMUSE T [place] 41 degrees GEMUSE ECG Interpretation Sinus bradycardia When compared with ECG of 06-SEP-2023 15:10, Vent. rate has decreased BY 41 BPM Confirmed by MAYDA NOYOLA ([id number]) on 04/05/2025 9:19:21 PM GEMUSE 04/05/2025 6:35 PM EDT 04/05/2025 9:19 PM EDT Eva Ellis MD ECG ORDERABLES Final Result GEMUSE * CT Head wo Contrast (04/05/2025 6:24 PM EDT) Anatomical Region Laterality Modality Head and Neck Computed Tomogra phy 04/05/2025 7:53 PM EDT Impressions 04/05/2025 7:53 PM EDT Impression: 1. No acute intracranial abnormalities. This document has been electronically signed by: Jarad Waters MD on 04/05/2025 19:53:32 Narrative 04/05/2025 7:53 PM EDT INDICATION: trauma CT head without contrast Comparison: 08/04/2023 Findings: No intracranial mass, midline shift, hydrocephalus, or acute hemorrhage. No CT evidence of acute ischemia. Visualized paranasal sinuses and mastoid air cells reveal moderate debris within right axillary sinus and trace fluid within left maxillary sinus, and mucosal thickening involving left sphenoid sinus.. Orbits unremarkable. No skull fracture Procedure Note Jarad Waters MD - 04/05/2025 INDICATION: trauma CT head without contrast Comparison: 08/04/2023 Findings: No intracranial mass, midline shift, hydrocephalus, or acute hemorrhage. No CT evidence of acute ischemia. Visualized paranasal sinuses and mastoid air cells reveal moderatedebris within right axillary sinus and trace fluid within left maxillary sinus, and mucosal thickening involving left sphenoid sinus.. Orbits unremarkable. No skull fracture IMPRESSION: Impression: 1. No acute intracranial abnormalities. This document has been electronically signed by: Jarad Waters MD on 04/05/2025 19:53:32 Eva Ellis MD IMG CT PROCEDURES Final Result * (ABNORMAL) Urinalysis with reflex microscopic (04/05/2025 5:44 PM EDT) Specific [place] Urine 1.022 1.003 - 1.030 LAB URINALYSIS - AUTOMATED METHOD 04/05/2025 6:26 PM [facility] pH, Urine 5.5 5.0 - 8.0 pH LAB URINALYSIS - AUTOMATED METHOD 04/05/2025 6:26 PM [facility] Leukocytes, Urine Negative Negative LAB URINALYSIS - AUTOMATED METHOD 04/05/2025 6:26 PM [facility] Nitrite, Urine Negative Negative LAB URINALYSIS - AUTOMATED METHOD 04/05/2025 6:26 PM [facility] Protein, Urine Negative <=Trace mg/dL LAB URINALYSIS - AUTOMATED METHOD 04/05/2025 6:26 PM [facility] Glucose, Urine Negative Negative mg/dL LAB URINALYSIS - AUTOMATED METHOD 04/05/2025 6:26 PM [facility] Ketones, Urine Trace(A) Negative mg/dL LAB URINALYSIS - AUTOMATED METHOD 04/05/2025 6:26 PM EDT [facility] Urobilinogen, Urine 1.0 0.2 - 1.0 mg/dL LAB URINALYSIS - AUTOMATED METHOD 04/05/2025 6:26 PM EDT [facility] Bilirubin, Urine Negative Negative LAB URINALYSIS - AUTOMATED METHOD 04/05/2025 6:26 PM EDT [facility] Blood, Urine Negative Negative LAB URINALYSIS - AUTOMATED METHOD 04/05/2025 6:26 PM T [facility] Urine Urine specimen obtained by clean catch procedure / Unknown Non-blood Collection / Unknown 04/05/2025 5:44 PM EDT 04/05/2025 6:19 PM EDT us Eva Ellis MD LAB URINE ORDERABLES Final Resul t [facility] [address] [place] [address], * (ABNORMAL) CBC (04/05/2025 5:44 PM EDT) WBC 5.6 4.8 - 10.8 K/mcL LAB HEMETOLOGY METHOD 04/05/2025 6:26 PM [facility] RBC 4.90 4.50 - 5.50 M/mcL LAB HEMETOLOGY METHOD 04/05/2025 6:26 PM T [facility] Hemoglobin 13.7 13.5 - 17.5 g/dL LAB HEMETOLOGY METHOD 04/05/2025 6:26 PM [facility] Hematocrit 40.3(L) 42.0 - 54.0 % LAB HEMETOLOGY METHOD 04/05/2025 6:26 PM [facility] MCV 82.8 79.0 - 98.0 FL LAB HEMETOLOGY METHOD 04/05/2025 6:26 PM [facility] MCH 28.1 27.0 - 32.0 pcg LAB HEMETOLOGY METHOD 04/05/2025 6:26 PM EDT [facility] MCHC 34.0 32.0 - 37.0 g/dL LAB HEMETOLOGY METHOD 04/05/2025 6:26 PM EDT [facility] RDW 13.7 11.0 - 15.0 % LAB HEMETOLOGY METHOD 04/05/2025 6:26 PM EDT [facility] Platelets 197 130 - 400 K/mcL LAB HEMETOLOGY METHOD 04/05/2025 6:26 PM EDT [facility] MPV 10.8 7.0 - 11.0 FL LAB HEMETOLOGY METHOD 04/05/2025 6:26 PM EDT [facility] NRBC 0.0 <1.0 % LAB HEMETOLOGY METHOD 04/05/2025 6:26 PM EDT [facility] NRBC Absolute 0.00 <0.10 K/mcL LAB HEMETOLOGY METHOD 04/05/2025 6:26 PM EDT [facility] Blood Venous blood specimen / Unknown Venipuncture / Unknown 04/05/2025 5:44 PM EDT 04/05/2025 6:19 PM EDT us Eva Ellis MD LAB BLOOD ORDERABLES Final Resul t [facility] [address] [place] [address], * Basic Metabolic Panel (BMP) (04/05/2025 5:44 PM EDT) Sodium 138 133 - 145 mmol/L LAB CHEMISTRY METHOD 04/05/2025 6:51 PM EDT [facility] Potassium 4.2 3.5 - 5.5 mmol/L LAB CHEMISTRY METHOD 04/05/2025 6:51 PM EDT [facility] Chloride 106 96 - 110 mmol/L LAB CHEMISTRY METHOD 04/05/2025 6:51 PM EDT [facility] CO2 25 21 - 32 mmol/L LAB CHEMISTRY METHOD 04/05/2025 6:51 PM EDT [facility] Anion Gap 7 3 - 11 LAB CHEMISTRY METHOD 04/05/2025 6:51 PM EDT [facility] Glucose 79 70 - 100 mg/dL LAB CHEMISTRY METHOD 04/05/2025 6:51 PM T [facility] BUN 18 5 - 25 mg/dL LAB CHEMISTRY METHOD 04/05/2025 6:51 PM T [facility] Creatinine 0.86 0.70 - 1.30 mg/dL LAB CHEMISTRY METHOD 04/05/2025 6:51 PM EDT [facility] eGFR 109 >=60 mL/min/1. 73m2 LAB CHEMISTRY METHOD 04/05/2025 6:51 PM EDT [facility] Comment:Calculation based on the Chronic Kidney Disease Epidemiology Collaboration (CKD-EPI) equation refit without adjustment for race. BUN/Creatinine Ratio 20.9 LAB CHEMISTRY METHOD 04/05/2025 6:51 PM T [facility] Calcium 9.0 8.5 - 10.5 mg/dL LAB CHEMISTRY METHOD 04/05/2025 6:51 PM T [facility] Blood Venous blood specimen / Unknown Venipuncture / Unknown 04/05/2025 5:44 PM EDT 04/05/2025 6:19 PM EDT us Eva Ellis MD LAB BLOOD ORDERABLES Final Resul t [facility] [address] [place] [address], * (ABNORMAL) Drug abuse screen 8a panel, urine (04/05/2025 5:44 PM EDT) Amphetamine Screen, Ur Negative Negative LAB CHEMISTRY METHOD 5 6:48 PM EDT [facility] Comment:Certain OTC medicati ons containing ephedrine, phenylephrine, pseudoephedrine and phenylpropanolamine can cause false positive results. Barbiturate Screen, Ur Negative Negative LAB CHEMISTRY METHOD 5 6:48 PM EDT [facility] Benzodiazepine Screen, Ur Positive(A ) Negative LAB CHEMISTRY METHOD 5 6:48 PM EDT [facility] Cocaine Screen, Ur Negative Negative LAB CHEMISTRY METHOD 5 6:48 PM [facility] Opiate Screen, Ur Negative Negative LAB CHEMISTRY METHOD 5 6:48 PM [facility] Cannabinoid (THC) Screen, Ur Negative Negative LAB CHEMISTRY METHOD 5 6:48 PM [facility] Comment:Specimens from patie nts taking pantoprazole sodium (Protonix) have been shown to produce false positive results. Oxycodone Screen, Ur Negative Negative LAB CHEMISTRY METHOD 5 6:48 PM [facility] Fentanyl, Ur Negative Negative LAB CHEMISTRY METHOD 5 6:48 PM [facility] Urine Urine specimen obtained by clean catch procedure / Unknown Non-blood Collection / Unknown 04/05/2025 5:44 PM EDT 04/05/2025 6:19 PM EDT Narrative [facility] - 04/05/2025 6:48 PM EDT Assay cutoffs: Amphetamines 1000 ng/mL Barbiturates 200 ng/mL Benzodiazepines 200 ng/mL Cocaine 300 ng/mL Fentanyl 1 ng/mL Opiates 300 ng/mL Oxycodone 100 ng/mL THC 50 ng/mL Semi-quantitative assay for screening purposes only. Unconfirmed screening result should not be used for non-medical purposes. *ALTERNATE METHOD CONFIRMATION DONE UPON REQUEST ONLY* us Eva Ellis MD LAB URINE ORDERABLES Final Resul t Performing Organization Address City/[facility] [facility]ARE [facility] Co de Phone Number [facility] [address] [place] [address], [place] [phone] * Ethanol (04/05/2025 5:44 PM EDT) Ethanol Level <3 0 - 10 mg/dL LAB CHEMISTRY METHOD 04/05/2025 6:51 PM EDT [facility] Blood Venous blood specimen / Unknown Venipuncture / Unknown 04/05/2025 5:44 PM EDT 04/05/2025 6:19 PM EDT Eva Ellis MD LAB BLOOD ORDERABLES Final Resul t Performing Organization Address [facility] de Phone Number [facility] [address] [place] [address], [place] [phone] documented in this encounter Visit Diagnoses Diagnosis Psychosis, unspecified psychosis type (CMS/HCC V24, CMS/HCC V28)- Primary Combative behavior Fall, initial encounter Auditory hallucination Hallucinations Visual hallucinations Psychophysical visual disturbances documented in this encounter Administered Medications Inactive Administered Medications - up to 3 most recent administrations Medication Order MAR Action Action Date Dose Rate Site acetaminophen (TYLENOL) tablet 1,000 mg 1,000 mg, oral, Once, On Shraddha 04/05/25 at 1740, For 1 dose Given 04/05/2025 6:11 PM EDT 1,000 mg diphenhydrAMINE (BENADRYL) injection 50 mg 50 mg, intramuscular, Once, On [place] 04/05/25 at 1845, For 1 dose Given 04/05/2025 6:58 PM EDT 50 mg Left Anterior Thigh haloperidol lactate (HALDOL) injection 5 mg 5 mg, intramuscular, Once, On Shraddha 04/05/25 at 1845, For 1 dose, May be ordered via either intramuscular or intravenous route. If ordered IV, maximum of 5 mg/minute. Given 04/05/2025 6:58 PM EDT 5 mg Right Ventrogluteal LORazepam (ATIVAN) injection 2 mg 2 mg, intramuscular, Once, On Shraddha 04/05/25 at 1845, For 1 dose, Prior to IV use, lorazepam injection should be DILUTED with an equal volume of compatible solution; Rate of administration should NOT exceed 2 mg/min. Given 04/05/2025 6:58 PM EDT 2 mg Left Ventrogluteal polyethylene glycol (MIRALAX) packet 17 g 17 g, oral, Daily, First dose on Wed04/06/25 at 1218 Given 04/06/2025 12:29 PM EDT 17 g prazosin (MINIPRESS) capsule 2 mg 2 mg, oral, Nightly, First dose on Wed04/06/25 at 2100 thiamine (VITAMIN B-1) tablet 100 mg 100 mg, oral, Daily, First dose on Wed04/06/25 at 1218 Given 04/06/2025 12:29 PM EDT 100 mg traZODone (DESYREL) tablet 100 mg 100 mg, oral, Nightly, First dose on Wed04/06/25 at 2100 documented in this encounter Historical Medications * This list may reflect changes made after this encounter. thiamine mononitrate, vit B1, 100 mg tablet Take 1 tablet (100 mg total) by mouth 1 (one) time each day in the morning. 01/23/2025 Gavilax 17 gram/dose oral powder Take 17 g by mouth 1 (one) time each day. 02/26/2025 amantadine (SYMMETREL) 100 mg capsule Take 1 capsule (100 mg total) by mouth 1 (one) time each day in the morning. ALPRAZolam (XANAX) 2 mg tablet Take 1 tablet (2 mg total) by mouth 2 (two) times a day. Vraylar 3 mg capsule Take 1 capsule (3 mg total) by mouth at bedtime. at bedtime traZODone (DESYREL) 100 mg tablet Take 1 tablet (100 mg total) by mouth at bedtime. at bedtime. 03/21/2025 prazosin (MINIPRESS) 2 mg capsule Take 1 capsule (2 mg total) by mouth at bedtime. at bedtime 02/26/2025 PARoxetine (PAXIL) 30 mg tablet Take 1 tablet (30 mg total) by mouth at bedtime. naltrexone (DEPADE) 50 mg tablet Take 1 tablet (50 mg total) by mouth 1 (one) time each day in the morning. eszopiclone (LUNESTA) 3 mg tablet Take 1 tablet (3 mg total) by mouth at bedtime. divalproex (DEPAKOTE) [address] tablet Take 2 tablets (1,000 mg total) by mouth 2 (two) times a day. added in this encounter Active and Recently Administered Medications Times are shown in EDT. Scheduled Medication Order 04/04/2025 04/05/2025 04/06/2025 acetaminophen (TYLENOL) tablet 1,000 mg (COMPLETED) 1,000 mg, oral, Once, On Shraddha 04/05/25 at 1740, For 1 dose 1810 (Given - Provider: Zahida Vazquez RN) diphenhydrAMINE (BENADRYL) injection 50 mg (COMPLETED) 50 mg, intramuscular, Once, On Shraddha 04/05/25 at 1845, For 1 dose 1857 (Given - Provider: Zahida Vazquez RN) haloperidol lactate (HALDOL) injection 5 mg (COMPLETED) 5 mg, intramuscular, Once, On [facility] 04/05/25 at 1845, For 1 dose, May be ordered via either intramuscular or intravenous route. If ordered IV, maximum of 5 mg/minute. 1857 (Given - Provider: Zahida Vazquez RN) LORazepam (ATIVAN) injection 2 mg (COMPLETED) 2 mg, intramuscular, Once, On Shraddha 04/05/25 at 1845, For 1 dose, Prior to IV use, lorazepam injection should be DILUTED with an equal volume of compatible solution; Rate of administration should NOT exceed 2 mg/min. 185 (Given - Provider: Zahida Vazquez RN) polyethylene glycol (MIRALAX) packet 17 g 17 g, oral, Daily, First dose on Wed04/06/25 at 1218 1229 (Given - Provid er: Zahida Vazquez RN) prazosin (MINIPRESS) capsule 2 mg 2 mg, oral, Nightly, First dose on Wed04/06/25 at 2100 thiamine (VITAMIN B-1) tablet 100 mg 100 mg, oral, Daily, First dose on Wed04/06/25 at 1218 1229 (Given - Provid er: Zahida Vazquez RN) traZODone (DESYREL) tablet 100 mg 100 mg, oral, Nightly, First dose on Wed04/06/25 at 2100 documented in this encounter Orders Medications Ordered That Rashad ht Not Have Been Administered Count Last Ordered Date First Ordered Date prazosin (MINIPRESS) capsule 2 mg 1 025 traZODone (DESYREL) tablet 100 mg 1 025 documented in this encounter Care Teams [employer] Relationship Specialty Start Date End Date Physician, Pcp Unknown PCP - General 04/05/25 documented as of this encounter
[2025-04-08] VITALS (8 sets, daily range): BP systolic 109–126; BP diastolic 49–79; PULSE 87–110; RESP 13–22; TEMP 36.7–37.3; O2SAT 95–98; BMI 25.8
--- NOTE | ~2025-04-08 | CT_ITS ---
CLINICAL HISTORY: seizure and fall CT head without contrast Comparison: CT/REG/SR - CT HEAD/BRAIN WO IV CON - 08/07/23 20:31 EST Findings: Mild generalized cerebral and cerebellar atrophy. Although this is unchanged compared to the patient's prior study, this is slightly greater than expected for a patient this age. The size and shape of the ventricular system is within normal limits for degree of atrophy. Attenuation of the brain parenchyma is within normal limits. No alva matter heterotopia. Alva-white differentiation is well preserved. No midline shift or mass effect. No intracranial hemorrhage. No calvarial fractures. Mild fluid or mucosal thickening within the posterior ethmoid air cells on the left with minor debris in the right maxillary sinus. IMPRESSION: 1. No acute intracranial findings. Specifically, no hemorrhage, fracture, or seizure focus identified. This document has been electronically signed by: Deepak Escamilla MD on 04/08/2025 16:02:13
--- NOTE | ~2025-04-08 | CT_ITS ---
CLINICAL HISTORY: seizure CT maxillofacial without contrast Comparison: CT/SR - CT HEAD/BRAIN WO IV CON - 04/08/25 14:[address]/REG/SR - CT HEAD/BRAIN WO IV CON - 08/07/23 20:31 EST Findings: No acute facial bone fractures identified. Pterygoid plates and zygomatic arches are intact. No fracture of the orbital floors or orbital valencia. Temporomandibular joints are anatomically aligned. Moderate mucosal thickening within the posterior left ethmoid air cells extending into the left sphenoid sinus. Mild debris or mucosal thickening within the inferior aspect of the right maxillary sinus. Globes are intact. Mild pre maxillary soft tissue swelling, [id number]. IMPRESSION: 1. No fracture. 2. Paranasal sinus disease as above. This document has been electronically signed by: Deepak Escamilla MD on 04/08/2025 16:08:38
--- NOTE | ~2025-04-08 | CT_ITS ---
CLINICAL HISTORY: seizure CT cervical spine without contrast Comparison: CT/SR - CT CERVICAL SPINE WITHOUT IV CONTRAST - 08/07/23 20:31 EST Findings: Images degraded by patient motion. Patient motion improved on repeat imaging. Minimal convex right upper cervical curvature. Mild straightening of the normal cervical lordosis within the mid to upper cervical spine. No fracture or prevertebral soft tissue swelling is identified. Upper airway is patent. Lung apices are clear. IMPRESSION: 1. No fracture. 2. Findings suggestive of muscle spasm. This document has been electronically signed by: Deepak Escamilla MD on 04/08/2025 16:06:55
[2025-04-08 13:49] LABS: MANUAL DIFF FLAG NO
[2025-04-08 13:50] LABS: Hematocrit 36.6 % (42.0-52.0); Hemoglobin 12.6 g/dl (14.0-18.0); Imm Gran Abs Auto 0.02 X10*3/uL (0.00-0.03); Imm Gran Pct Auto 0.4 % (0.0-0.4); Lymphocytes Absolute Auto 2.1 X10*3/uL (1.2-4.9); Mean Corpuscular HGB Conc 34.4 g/dl (31.0-36.0); Mean Corpuscular Hemoglobin 29.0 pg (27.0-33.0); Mean Corpuscular Volume 84.1 fL (80.0-98.0); NRBC Abs Auto 0.000 X10*3/uL (0.0-0.012); NRBC Pct Auto 0.0 /100WBC (0.0-0.2); Platelet Count 181 X10*3/uL (160-400); Red Blood Count 4.35 X10*6/uL (4.60-5.80); White Blood Count 4.8 X10*3/uL (4.8-10.8)
--- NOTE | 2025-04-08 13:55 | ECG_ITS ---
Test Reason : seizure Blood Pressure : */* mmHG Vent. Rate : 102 BPM Atrial Rate : 102 BPM P-R Int : 132 ms QRS Dur : 92 ms QT Int : 366 ms P-R-T Axes : 18 55 33 degrees QTcB Int : 477 ms Sinus tachycardia Nonspecific T wave abnormality Abnormal ECG When compared with ECG of 07-Aug-2023 19:50, No significant change was found Referred By: Ebenezer Nava Electronically Signed By: JODI THACKER MD
--- NOTE | 2025-04-08 13:57 | ED.SEIZURE ---
HPI - Seizure General Chief Complaint: Seizure Stated Complaint: GRETCHEN FALLON SZ, FALL HEADSTRIKE Time Seen by Provider: 04/08/25 13:45 Source: patient, EMS, old records reviewed and machine tender Mode of arrival: EMS Limitations: no limitations History of Present Illness ED Provider: DR. Nava HPI Narrative: 44-year-old came in as section 21 from [facility] came in by EMS for further evaluation after patient had multiple seizure at the facility, patient is complaining of right-sided facial pain and right jaw pain after the seizure, patient has no memory of the event but apparently patient fell down hitting right side of his face complaining of right facial pain, neck pain. Patient is on Depakote 1000 mg PID daily claiming that he is compliant with his medication. Seizure History: Yes Related Data Home Medications ?Medication ?Instructions ?Recorded ?Confirmed acetaminophen 325 mg tablet 650 mg PO Q4H PRN Pain (Scale 04/08/25 04/08/25 Score 1-3) albuterol sulfate 90 mcg/actuation 2 puff inhalation BID PRN 04/08/25 04/08/25 aerosol inhaler Shortness Of Breath alprazolam 2 mg tablet 2 mg PO BID PRN Anxiety 04/08/25 04/08/25 aluminum-mag hydroxide-simethicone 30 ml PO QID PRN gi upset 04/08/25 04/08/25 200 mg-200 mg-20 mg/5 mL oral susp benzocaine 15 mg-menthol 3.6 mg 1 logan mucous membrane Q2H PRN Sore 04/08/25 04/08/25 lozenges Throat calcium carbonate (Tums) 200 mg PO Q4H PRN Heartburn 04/08/25 04/08/25 divalproex 500 mg tablet,delayed 1,000 mg PO BID 04/08/25 04/08/25 release docusate sodium 100 mg capsule 100 mg PO BID PRN Constipation 04/08/25 04/08/25 guaifenesin 600 mg tablet, 1,200 mg PO BID PRN Cough 04/08/25 04/08/25 extended release 12 hr hydroxyzine pamoate 50 mg capsule 50 mg PO Q4H PRN Anxiety 04/08/25 04/08/25 loperamide 2 mg capsule 2 mg PO Q4H PRN Diarrhea 04/08/25 04/08/25 magnesium hydroxide 400 mg/5 mL 30 ml PO DAILY PRN Constipation 04/08/25 04/08/25 oral suspension melatonin 3 mg tablet 3 mg PO BEDTIME PRN Insomnia 04/08/25 04/08/25 naltrexone 50 mg tablet 50 mg PO DAILY 04/08/25 04/08/25 nicotine (polacrilex) 2 mg gum 2 mg buccal Q2H PRN Nicotine 04/08/25 04/08/25 Cravings nicotine 21 mg/24 hr daily 1 patch transdermal DAILY PRN 04/08/25 04/08/25 transdermal patch Nicotine Cravings olanzapine 5 mg disintegrating 5 mg PO BEDTIME 04/08/25 04/08/25 tablet olanzapine 5 mg disintegrating 5 mg PO DAILY PRN Psychosis 04/08/25 04/08/25 tablet ondansetron 4 mg disintegrating 4 mg PO Q6H PRN Nausea And Vomiting 04/08/25 04/08/25 tablet prazosin 2 mg capsule 2 mg PO BEDTIME 04/08/25 04/08/25 sennosides 8.6 mg tablet (senna) 17.2 mg PO DAILY PRN Constipation 04/08/25 04/08/25 trazodone 100 mg tablet 100 mg PO BEDTIME 04/08/25 04/08/25 Allergies Allergy/AdvReac Type Severity Reaction Status Date / Time ibuprofen Allergy Severe Anaphylaxis Verified 04/08/25 13:38 atorvastatin AdvReac Intermediate Abdominal Verified 04/08/25 13:38 Pain Review of Systems Review of Systems: All other systems are reviewed and are negative Constitutional: Reports as per HPI and Reports no additional constitutional complaints Eyes: Reports as per HPI and Reports no additional eye complaints Reports system reviewed and no additional complaints, except as documented Cardiovascular: Reports as per HPI and Reports no additional cardiovascular complaints Respiratory: Reports as per HPI and Reports no additional respiratory complaints Gastrointestinal: Reports as per HPI and Reports no additional gastrointestinal complaints Genitourinary: Reports no additional female genitourinary complaints Musculoskeletal: Reports no additional musculoskeletal complaints Skin/Breast: Reports system reviewed and no additional complaints, except as docu Psychiatric: Reports no additional psychiatric complaints Endocrine: Reports no additional endocrine complaints Hematologic/Lymphatic: Reports no additional hematologic/lymphatic complaints Allergic/Immunologic: Reports no additional allergic/immunologic complaints Reports system reviewed and no additional complaints, except as documented and Reports Abnormal speech present PMFSH Past Medical History Medical History Hyperlipidemia Seizure disorder Schizophrenia Social History Social History Alcohol intake: former Smoked in Last 30 Days: No Use of substances other than those prescribed or required for medical reasons: No Advance Directives: No Advance Directives Information Provided: Yes Physical Exam Vital Signs: Vital Signs: Last Vital Signs Temp 98.2 F 04/08/25 16:10 Pulse 100 04/08/25 16:10 Resp 18 04/08/25 16:10 BP 109/76 04/08/25 16:10 Pulse Ox 97 04/08/25 16:10 O2 Del Method Room Air 04/08/25 16:10 BMI result Body Mass Index 25.8 Vital signs have been reviewed and appear to be correct. Blood pressure elevated. Heart rate normal. Respiratory rate normal. Temperature normal. Oxygen saturation normal. Appearance: Alert. Oriented X3. No acute distress. Head: Normal external exam. Normocephalic. Atraumatic. No Zimmer signs noted. No raccoon eyes noted Eyes: PERRLA. EOMI. Conjunctiva and sclera normal. Eyelids normal. ENT: TM's Normal. Pharynx normal. Uvula midline. Moist mucous membranes. No trismus noted. No drooling noted. No muffled voice noted. Neck: Normal inspection. Neck supple. FROM. No adenopathy. Thyroid Normal. No meningeal signs. No neck mass noted. CVS: Normal heart rate and rhythm. Heart sound normal. No murmurs noted. Pulses normal throughout. Respiratory: No respiratory distress. Painless inspiration. Breath sounds normal. No wheezes/rales/rhonchi noted. Chest nontender. No accessory muscle usage noted or decreased air movement noted. Abdomen: Soft and nontender. Bowel sounds normal in all 4 quadrants. No distention noted. No organomegaly noted. No visible injury noted. Back: No CVA tenderness. Full range of motion noted. Skin: Skin warm and dry. Normal skin color. Normal skin turgor. No rashes/lesions/lacerations noted. Extremities: No lower extremity edema. Extremities exhibit normal range of motion. Extremities nontender. Neuro: Oriented X 3. Cranial nerve exam: II-XII are grossly intact No motor deficit. No sensory deficit. Reflexes normal. Course Reevaluation(s) Reevaluation #1: 44-year-old male recently admitted to [facility] for acute psychosis presented after had 3 seizure at [facility] witnessed by the staff, then the patient had another episode of seizure witnessed in the ED was able to control with 10 mg of Valium, patient was loaded with 1 g of Depakote. Will admit for further evaluation. Time: 16:31 Medications Administered Discontinued Medications Generic Name Dose Route Start Last Admin Trade Name Freq PRN Reason Stop Dose Admin Diazepam 10 mg 04/08/25 15:57 04/08/25 16:01 Diazepam 10 Mg/2 Ml Cartridge IVPUSH 04/08/25 15:58 10 mg STAT STA Administration Divalproex Sodium 1,000 mg 04/08/25 15:58 04/08/25 16:08 Divalproex Sodium 500 Mg Tablet. PO 04/08/25 15:59 1,000 mg ONCE ONE Administration Medical Decision Making Differential Diagnosis Differential Diagnoses: The differential diagnosis associated with the presentation includes (Status epilepticus, multiple episodes of seizure, electrolyte derangement, metabolic underlying reasons, subtherapeutic antiseizure medication.) Admission/Observation Consideration of admission/observation: Escalation of care including admission/observation considered Consult Healthcare Provider Management of the patient was discussed with: Hospitalist (Dr. Hull) Lab Data MDM Lab Attestation statement: I reviewed the patient's lab results. 04/08/25 13:43 04/08/25 13:43 Labs: Lab Results 04/08/25 04/08/25 Range/Units 13:43 14:11 WBC 4.8 (4.8-10.8) X10*3/uL RBC 4.35 L (4.60-5.80) X10*6/uL Hgb 12.6 L (14.0-18.0) g/dl Hct 36.6 L (42.0-52.0) % MCV 84.1 (80.0-98.0) fL MCH 29.0 (27.0-33.0) pg MCHC 34.4 (31.0-36.0) g/dl RDW 13.6 (11.0-16.0) % Plt Count 181 (160-400) X10*3/uL MPV 10.2 (9.4-12.4) fL Immature Gran % (Auto) 0.4 (0.0-0.4) % Neut % (Auto) 40.3 L (45-73) % Lymph % (Auto) 44.2 H (20-40) % [place] % (Auto) 11.2 H (2-11) % Eos % (Auto) 3.3 (0-4) % Baso % (Auto) 0.6 (0-2) % Lymph # (Auto) 2.1 (1.2-4.9) X10*3/uL [place] # (Auto) 0.5 (0.1-1.2) X10*3/uL Eos # (Auto) 0.2 (0.0-0.4) X10*3/uL Baso # (Auto) 0.0 (0.0-0.2) X10*3/uL Abs Immat Gran (auto) 0.02 (0.00-0.03) X10*3/uL Absolute Neuts (auto) 2.0 (2.0-8.3) x10*3/uL Absolute Nucleated RBC 0.000 (0.0-0.012) X10*3/uL Nucleated RBC % (auto) 0.0 (0.0-0.2) /100WBC Sodium 144 (135-145) mmol/L Potassium 4.0 (3.3-5.1) mmol/L Chloride 110 H (96-108) mmol/L Carbon Dioxide 22 (22-29) mmol/L Anion Gap 16 (12-20) BUN 6 L (9-16) mg/dL Creatinine 0.81 (0.5-1.4) mg/dL Estim Creat Clear Calc 107.6 Estimated GFR > 60 Random Glucose 140 H (60-115) mg/dL Calcium 8.6 D (8.4-10.2) mg/dL Magnesium 1.7 (1.6-2.6) mg/dL Total Bilirubin 0.2 (0.0-1.0) mg/dL Direct Bilirubin < 0.2 (0.0-0.5) mg/dL AST 44 H (5-37) U/L ALT 52 H (0-40) U/L Alkaline Phosphatase 60 (39-117) U/L Total Protein 6.5 (6.5-8.0) g/dL Albumin 3.9 (3.5-5.0) g/dL Lipase 27 (8-78) U/L Valproic Acid 67.6 (50.0-100.0) mcg/mL Ethyl Alcohol < 10 mg/dL Independent Interpretation I performed an independent interpretation of an: CT Scan (Head/face/cervical spine: No acute fracture, no acute intracranial findings.) Radiology Impression Discussion of test interpretation with radiology: I have reviewed the radiologist's reading. Discharge Plan Discharge Clinical Impression: Intractable seizure disorder Patient Disposition: Admitted As Inpatient Print Language: Malay
--- OUTSIDE RECORDS SUMMARY | 2025-04-08 13:58 | XMS_ITS | Encounter Summary ---
Author Organization [facility] Address [address] [place] [address] Care Team Providers Care Securities Clerk Name Role Phone Physician, Pcp Unknown Primary Care Provider Gypsy vailable Encounter Details Date Type Department Care Team (Late st Contact Info) Description 04/07/2025 Lab Requisition [facility] - Main Lab [address] [facility] [email or web address] [address] Juana Marcus NP [address] [place] [address] Other nursing home (current) drug therapy Social History Tobacco Use Types Packs/Day Years Used Date Smoking Tobacco: Never Assessed Sex and Gender Information Value Date Recorded Sex Assigned at Not on file Legal Sex Male 5:05 AM EST Gender Identity Not on file Sexual Orientation Not on file documented as of this encounter Functional Status * Are you deaf or do you have serious difficulty hearing? Answer Date of Assessment Author No 04/05/2025 7:43 PM Jonny Garcia RN * Are you blind or do you have serious difficulty seeing, even when wearing glasses? Answer Date of Assessment Author No 04/05/2025 7:43 PM Jonny Garcia RN * Do you have serious difficulty walking or climbing stairs? Answer Date of Assessment Author No 04/05/2025 7:43 PM Jonny Garcia RN * Do you have serious difficulty dressing or bathing? Answer Date of Assessment Author No 04/05/2025 7:43 PM Jonny Garcia RN * Because of a physical, mental, or emotional condition, do you have serious difficulty doing errandsalone such as visiting the doctor? Answer Date of Assessment Author No 04/05/2025 7:43 PM Jonny Garcia RN documented as of this encounter Mental Status * Because of a physical, mental, or emotional condition, do you have serious difficulty concentrating, remembering, or making decisions? (5 years old or older) Answer Entry Date Author No 04/05/2025 7:43 PM EDT Jonny Feng RN documented in this encounter Plan of Treatment Not on file documented as of this encounter Procedures Procedure Name Priority Date/Time Associated Diagnosis Comments LIPID PANEL WITH REFLEX TO DIRECT LDL Routine 04/07/2025 7:00 AM EDT Other nursing home (current) drug therapy LDL CHOLESTEROL, DIRECT Routine 04/07/2025 7:00 AM EDT Other supervisor long goods (current) drug therapy HEMOGLOBIN A1C Routine 04/07/2025 7:00 AM EDT Other nursing home (current) drug therapy GLUCOSE, RANDOM Routine 04/07/2025 7:00 AM EDT Other supervisor long goods (current) drug therapy documented in this encounter Results * (ABNORMAL) LDL cholesterol, direct (04/07/2025 7:00 AM EDT) LDL Direct 156(H) <=100 mg/dL LAB CHEMISTRY METHOD 04/07/2025 11:44 AM EDT [facility] Blood Venous blood specimen / Unknown Venipuncture / Unknown 04/07/2025 7:00 AM EDT 04/07/2025 10:04 AM EDT Juana Marcus NP LAB BLOOD ORDERABLES Final Resul t [facility] [address] [place] [address], * (ABNORMAL) Glucose, random (04/07/2025 7:00 AM EDT) Glucose 157(H) 70 - 100 mg/dL LAB CHEMISTRY METHOD 04/07/2025 11:26 AM EDT [facility] Blood Venous blood specimen / Unknown Venipuncture / Unknown 04/07/2025 7:00 AM EDT 04/07/2025 10:04 AM EDT us Juana Marcus NP LAB BLOOD ORDERABLES Final Resul t [facility] [address] [place] [address], [place] [phone] * (ABNORMAL) Lipid panel with reflex to direct LDL (04/07/2025 7:00 AM EDT) Cholesterol 252(H) 0 - 200 mg/dL LAB CHEMISTRY METHOD 04/07/2025 11:33 AM EDT [facility] Triglycerides 541(H) 0 - 150 mg/dL LAB CHEMISTRY METHOD 04/07/2025 11:33 AM [facility] HDL 28(L) >=40 mg/dL LAB CHEMISTRY METHOD 04/07/2025 11:33 AM EDT [facility] LDL Calculated LAB CHEMISTRY METHOD 04/07/2025 11:33 AM T [facility] Comment: Unable to calculate when triglycerides >400 mg/dL. Triglyceride value is >= 500. Calculated LDL is not meaningful. Direct LDL has been added. VLDL Cholesterol [facility] LAB CHEMISTRY METHOD 04/07/2025 11:33 AM T [facility] Comment:Unable to calculate when triglycerides >400 mg/dL. Non HDL Chol. (LDL+VLDL) LAB CHEMISTRY METHOD 04/07/2025 11:33 AM T [facility] Comment:Unable to calculate when triglycerides >400 mg/dL. Chol/HDL Ratio 9.0(H) 0.0 - 4.4 LAB CHEMISTRY METHOD 04/07/2025 11:33 AM T [facility] Blood Venous blood specimen / Unknown Venipuncture / Unknown 04/07/2025 7:00 AM EDT 04/07/2025 10:04 AM EDT Juana Marcus SECURITY SHIFT MANAGER LAB BLOOD ORDERABLES Final Resul t Performing Organization Address [facility]/ZIP Co de Phone Number [facility] [address] [place] [address], [place] [phone] * Hemoglobin A1c (04/07/2025 7:00 AM EDT) Hemoglobin A1C 5.5 <6.5 % LAB CHEMISTRY METHOD 04/08/2025 1:02 PM EDT [facility] Mean Bld Glu Estim. 111 mg/dL LAB CHEMISTRY METHOD 04/08/2025 1:02 PM EDT [facility] Blood Venous blood specimen / Unknown Venipuncture / Unknown 04/07/2025 7:00 AM EDT 04/07/2025 10:04 AM EDT Juana Marcus SECURITY SHIFT MANAGER LAB BLOOD ORDERABLES Final Resul t Performing Organization Address [facility]/ZIP Co de Phone Number [facility] [address] [place] [address], [place] [phone] documented in this encounter Visit Diagnoses Diagnosis Other nursing home (current) drug therapy documented in this encounter Care Teams Securities Clerk Relationship Specialty Start Date End Date Physician, Pcp Unknown PCP - General 04/05/25 documented as of this encounter
--- OUTSIDE RECORDS SUMMARY | 2025-04-08 13:59 | XMS_ITS | Clinical Summary ---
Author Organization [facility] Address [address] [place] [address] Phone Care Team Providers Care Publication Specialist Name Role Phone Physician, Pcp Unknown Primary Care Provider Gypsy vailable Allergies No known active allergies Medications divalproex (DEPAKOTE) [address] tablet Take 2 tablets (1,000 mg total) by mouth 2 (two) times a day. Active eszopiclone (LUNESTA) 3 mg tablet Take 1 tablet (3 mg total) by mouth at bedtime. Active naltrexone (DEPADE) 50 mg tablet Take 1 tablet (50 mg total) by mouth 1 (one) time each day in the morning. Active PARoxetine (PAXIL) 30 mg tablet Take 1 tablet (30 mg total) by mouth at bedtime. Active prazosin (MINIPRESS) 2 mg capsule Take 1 capsule (2 mg total) by mouth at bedtime. at bedtime 02/26/2025 Active traZODone (DESYREL) 100 mg tablet Take 1 tablet (100 mg total) by mouth at bedtime. at bedtime. 03/21/2025 Active Vraylar 3 mg capsule Take 1 capsule (3 mg total) by mouth at bedtime. at bedtime Active ALPRAZolam (XANAX) 2 mg tablet Take 1 tablet (2 mg total) by mouth 2 (two) times a day. Active amantadine (SYMMETREL) 100 mg capsule Take 1 capsule (100 mg total) by mouth 1 (one) time each day in the morning. Active Gavilax 17 gram/dose oral powder Take 17 g by mouth 1 (one) time each day. 02/26/2025 Active thiamine mononitrate, vit B1, 100 mg tablet Take 1 tablet (100 mg total) by mouth 1 (one) time each day in the morning. 01/23/2025 Active Encounters Date Type Department Care Team Description 04/07/2025 Lab Requisition [facility] - Main Lab [address] [place] [address] Juana Marcus NP Other intermediate project manager (current) drug therapy 04/05/2025 4:26 PM EDT - 04/06/2025 5:25 PM EDT Emergency [facility] Emergency [address] [place] [address] Eva Ellis MD Amardey-Welli ngton, Aaron, MD Kokkinos, Erika, MD Wyman, Tim, MD Psychosis, unspecified psychosis type (CMS/HCC V24, CMS/HCC V28) (Primary Dx); Combative behavior; Fall, initial encounter; Auditory hallucination; Visual hallucinations Discharge Disposition: Send to ED from Last 3 Months Social History Tobacco Use Types Packs/Day Years Used Date Smoking Tobacco: Never Assessed Sex and Gender Information Value Date Recorded Sex Assigned at Not on file Legal Sex Male 5:05 AM EST Gender Identity Not on file Sexual Orientation Not on file Obstetrics History Last Filed Vital Signs Vital Sign Reading [...] Mass Index 26.16 04/05/2025 5:07 PM EDT Plan of Treatment Health Maintenance Due Date Last Done Comments Colorectal Cancer Screening: Colonoscopy 1979 DTaP,Tdap,and Td Vaccines (1 - Tdap) 11/10/1998 Hepatitis A Vaccines (1 of 2 - Risk 2-dose series) 11/10/1998 Hepatitis B Vaccines (1 of 3 - 19+ 3-dose series) 11/10/1998 HPV Vaccines (1 - 3-dose SCD M series) 11/10/2006 HIV Screening 05/24/2022 Hepatitis C Screening 05/24/2022 Social Influencers of Health Screening 05/24/2022 Depression Screening 06/21/2024 COVID-19 Vaccine (2 - 2024-2 6 season) 2025 04/06/2022 Influenza Vaccine (#1) 2025 , 09/25/2021 Cholesterol Screening (Lipid Panel) 04/07/2030 04/07/2025, 04/07/2025 RSV Immunization Adult Patients (1 - 1-dose 75+ series) 11/10/2054 HIB Vaccines Aged Out No longer eligi ble based on patient's age to complete this topic IPV Vaccines Aged Out No longer eligi ble based on patient's age to complete this topic MMR Vaccines Aged Out No longer eligi ble based on patient's age to complete this topic Meningococcal ACWY Vaccine Aged Out N o longer eligible based on patient's age to complete this topic Meningococcal B Vaccine Aged Out No l onger eligible based on patient's age to complete this topic Pneumococcal Vaccine: Pediatrics (0 to 5 Years) and At-Risk Patients (6 to 49 Years) Aged Out No longer eligible b ased on patient's age to complete this topic RSV Immunization Patients Under 20 months Aged Out No longer eligible b ased on patient's age to complete this topic Varicella Vaccines Aged Out No longer eligible based on patient's age to complete this topic Procedures Procedure Name Priority Date/Time Associated Diagnosis Comments LDL CHOLESTEROL, DIRECT Routine 04/07/2025 7:00 AM EDT Other intermediate project manager (current) drug therapy GLUCOSE, RANDOM Routine 04/07/2025 7:00 AM EDT Other intermediate project manager (current) drug therapy LIPID PANEL WITH REFLEX TO DIRECT LDL Routine 04/07/2025 7:00 AM EDT Other intermediate project manager (current) drug therapy HEMOGLOBIN A1C Routine 04/07/2025 7:00 AM EDT Other halfway (current) drug therapy ECG ANNOTATED 04/06/2025 ECG 12-LEAD STAT 04/05/2025 6:[address] HEAD WO CONTRAST STAT 04/05/2025 6 :24 PM EDT URINALYSIS WITH REFLEX MICROSCOPIC STAT 04/05/2025 5:44 PM EDT COMPLETE BLOOD COUNT STAT 04/05/2025 5:44 PM EDT BASIC METABOLIC PANEL STAT 04/05/2025 5:44 PM EDT URINALYSIS WITH REFLEX MICROSCOPIC STAT 04/05/2025 5:44 PM EDT DRUG ABUSE SCREEN 8A PANEL, URINE STAT 04/05/2025 5:44 PM EDT ETHANOL STAT 04/05/2025 5:44 PM EDT from Last 3 Months Results * (ABNORMAL) Lipid panel with reflex to direct LDL (04/07/2025 7:00 AM EDT) Cholesterol 252(H) 0 - 200 mg/dL LAB CHEMISTRY METHOD 04/07/2025 11:33 AM EDT [facility] Triglycerides 541(H) 0 - 150 mg/dL LAB CHEMISTRY METHOD 04/07/2025 11:33 AM T [facility] HDL 28(L) >=40 mg/dL LAB CHEMISTRY METHOD 04/07/2025 11:33 AM EDT [facility] LDL Calculated LAB CHEMISTRY METHOD 04/07/2025 11:33 AM T [facility] Comment: Unable to calculate when triglycerides >400 mg/dL. Triglyceride value is >= 500. Calculated LDL is not meaningful. Direct LDL has been added. VLDL Cholesterol Graham LAB CHEMISTRY METHOD 04/07/2025 11:33 AM EDT [facility] Comment:Unable to calculate when triglycerides >400 mg/dL. Non HDL Chol. (LDL+VLDL) LAB CHEMISTRY METHOD 04/07/2025 11:33 AM EDT [facility] Comment:Unable to calculate when triglycerides >400 mg/dL. Chol/HDL Ratio 9.0(H) 0.0 - 4.4 LAB CHEMISTRY METHOD 04/07/2025 11:33 AM EDT [facility] Blood Venous blood specimen / Unknown Venipuncture / Unknown 04/07/2025 7:00 AM EDT 04/07/2025 10:04 AM EDT Juana Marcus LAB BLOOD ORDERABLES Final Resul t Performing Organization Address City/[facility]/ZIP Co de Phone Number [facility] [address] [place] [address], [place] [phone] * (ABNORMAL) LDL cholesterol, direct (04/07/2025 7:00 AM EDT) LDL Direct 156(H) <=100 mg/dL LAB CHEMISTRY METHOD 04/07/2025 11:44 AM EDT [facility] Blood Venous blood specimen / Unknown Venipuncture / Unknown 04/07/2025 7:00 AM EDT 04/07/2025 10:04 AM EDT Juana Marcus NP LAB BLOOD ORDERABLES Final Resul t [facility] [address] [place] [address], [place] [phone] * Hemoglobin A1c (04/07/2025 7:00 AM EDT) Hemoglobin A1C 5.5 <6.5 % LAB CHEMISTRY METHOD 04/08/2025 1:02 PM EDT [facility] Mean Bld Glu Estim. 111 mg/dL LAB CHEMISTRY METHOD 04/08/2025 1:02 PM EDT [facility] Blood Venous blood specimen / Unknown Venipuncture / Unknown 04/07/2025 7:00 AM EDT 04/07/2025 10:04 AM EDT Juana Marcus NP LAB BLOOD ORDERABLES Final Resul t Performing Organization Address [facility]/ZIP Co de Phone Number [facility] [address] [place] [address], [place] [phone] * (ABNORMAL) Glucose, random (04/07/2025 7:00 AM EDT) Glucose 157(H) 70 - 100 mg/dL LAB CHEMISTRY METHOD 04/07/2025 11:26 AM EDT [facility] Blood Venous blood specimen / Unknown Venipuncture / Unknown 04/07/2025 7:00 AM EDT 04/07/2025 10:04 AM EDT Juana Marcus NP LAB BLOOD ORDERABLES Final Resul t Performing Organization Address City/[facility]/ZIP Co de Phone Number [facility] [address] [place] [address], [place] [phone] * ECG-Annotated (04/06/2025) Provider Onbase MD ECG ORDERABLES Final Result * 12-Lead ECG (04/05/2025 6:35 PM EDT) Ventricular Rate ECG 49 BPM GEMUSE Atrial Rate 49 BPM GEMUSE P-R Interval 130 ms GEMUSE QRS Duration 98 ms GEMUSE Q-T Interval 464 ms GEMUSE QTc 419 ms GEMUSE P Wave [place] 14 degrees GEMUSE R [place] 46 degrees GEMUSE T [place] 41 degrees GEMUSE ECG Interpretation Sinus bradycardia [...] reflex microscopic (04/05/2025 5:44 PM EDT) Specific [place] Urine 1.022 1.003 - 1.030 LAB URINALYSIS - AUTOMATED METHOD 04/05/2025 6:26 PM EDT [facility] pH, Urine 5.5 5.0 - 8.0 pH LAB URINALYSIS - AUTOMATED METHOD 04/05/2025 6:26 PM EDT [facility] Leukocytes, Urine Negative Negative LAB URINALYSIS - AUTOMATED METHOD 04/05/2025 6:26 PM T [facility] Nitrite, Urine Negative Negative LAB URINALYSIS - AUTOMATED METHOD 04/05/2025 6:26 PM T [facility] Protein, Urine Negative <=Trace mg/dL LAB URINALYSIS - AUTOMATED METHOD 04/05/2025 6:26 PM T [facility] Glucose, Urine Negative Negative mg/dL LAB URINALYSIS - AUTOMATED METHOD 04/05/2025 6:26 PM [facility] Ketones, Urine Trace(A) Negative mg/dL LAB URINALYSIS - AUTOMATED METHOD 04/05/2025 6:26 PM [facility] Urobilinogen, Urine 1.0 0.2 - 1.0 mg/dL LAB URINALYSIS - AUTOMATED METHOD 04/05/2025 6:26 PM [facility] Bilirubin, Urine Negative Negative LAB URINALYSIS - AUTOMATED METHOD 04/05/2025 6:26 PM [facility] Blood, Urine Negative Negative LAB URINALYSIS - AUTOMATED METHOD 04/05/2025 6:26 PM [facility] Urine Urine specimen obtained by clean catch procedure / Unknown Non-blood Collection / Unknown 04/05/2025 5:44 PM EDT 04/05/2025 6:19 PM EDT us Eva Ellis MD LAB URINE ORDERABLES Final Resul t [facility] [address] [place] [address], [place] [phone] * (ABNORMAL) Drug abuse screen 8a panel, urine (04/05/2025 5:44 PM EDT) Amphetamine Screen, Ur Negative Negative LAB CHEMISTRY METHOD 5 6:48 PM T [facility] Comment:Certain OTC medicati ons containing ephedrine, phenylephrine, pseudoephedrine and phenylpropanolamine can cause false positive results. Barbiturate Screen, Ur Negative Negative LAB CHEMISTRY METHOD 5 6:48 PM EDT [facility] Benzodiazepine Screen, Ur Positive(A ) Negative LAB CHEMISTRY METHOD 5 6:48 PM EDT [facility] Cocaine Screen, Ur Negative Negative LAB CHEMISTRY METHOD 5 6:48 PM [facility] Opiate Screen, Ur Negative Negative LAB CHEMISTRY METHOD 5 6:48 PM [facility] Cannabinoid (THC) Screen, Ur Negative Negative LAB CHEMISTRY METHOD 5 6:48 PM [facility] Comment:Specimens from patie nts taking pantoprazole sodium (Protonix) have been shown to produce false positive results. Oxycodone Screen, Ur Negative Negative LAB CHEMISTRY METHOD 5 6:48 PM [facility] Fentanyl, Ur Negative Negative LAB CHEMISTRY METHOD 5 6:48 PM [facility] Urine Urine specimen obtained by clean catch procedure / Unknown Non-blood Collection / Unknown 04/05/2025 5:44 PM EDT 04/05/2025 6:19 PM EDT Narrative [facility] - 04/05/2025 6:48 PM EDT Assay cutoffs: Amphetamines 1000 ng/mL Barbiturates 200 ng/mL Benzodiazepines 200 ng/mL Cocaine 300 ng/mL Fentanyl 1 ng/mL Opiates 300 ng/mL Oxycodone 100 ng/mL THC 50 ng/mL Semi-quantitative assay for screening purposes only. Unconfirmed screening result should not be used for non-medical purposes. *ALTERNATE METHOD CONFIRMATION DONE UPON REQUEST ONLY* Eva Ellis MD LAB URINE ORDERABLES Final Resul t [facility] [address] [place] [address], * (ABNORMAL) CBC (04/05/2025 5:44 PM EDT) WBC 5.6 4.8 - 10.8 K/mcL LAB HEMETOLOGY METHOD 04/05/2025 6:26 PM EDT [facility] RBC 4.90 4.50 - 5.50 M/mcL LAB HEMETOLOGY METHOD 04/05/2025 6:26 PM EDT [facility] Hemoglobin 13.7 13.5 - 17.5 g/dL LAB HEMETOLOGY METHOD 04/05/2025 6:26 PM EDT [facility] Hematocrit 40.3(L) 42.0 - 54.0 % LAB HEMETOLOGY METHOD 04/05/2025 6:26 PM EDT [facility] MCV 82.8 79.0 - 98.0 FL LAB HEMETOLOGY METHOD 04/05/2025 6:26 PM EDT [facility] MCH 28.1 27.0 - 32.0 pcg LAB HEMETOLOGY METHOD 04/05/2025 6:26 PM EDT [facility] MCHC 34.0 32.0 - 37.0 g/dL LAB HEMETOLOGY METHOD 04/05/2025 6:26 PM EDT [facility] RDW 13.7 11.0 - 15.0 % LAB HEMETOLOGY METHOD 04/05/2025 6:26 PM EDT [facility] Platelets 197 130 - 400 K/mcL LAB HEMETOLOGY METHOD 04/05/2025 6:26 PM EDT [facility] MPV 10.8 7.0 - 11.0 FL LAB HEMETOLOGY METHOD 04/05/2025 6:26 PM EDT [facility] NRBC 0.0 <1.0 % LAB HEMETOLOGY METHOD 04/05/2025 6:26 PM EDT [facility] NRBC Absolute 0.00 <0.10 K/mcL LAB HEMETOLOGY METHOD 04/05/2025 6:26 PM EDT [facility] Blood Venous blood specimen / Unknown Venipuncture / Unknown 04/05/2025 5:44 PM EDT 04/05/2025 6:19 PM EDT us Eva Ellis MD LAB BLOOD ORDERABLES Final Resul t Performing Organization Address City/[facility]/ZIP Co de Phone Number [facility] [address] [place] [address], [place] [phone] * Ethanol (04/05/2025 5:44 PM EDT) Ethanol Level <3 0 - 10 mg/dL LAB CHEMISTRY METHOD 04/05/2025 6:51 PM EDT [facility] Blood Venous blood specimen / Unknown Venipuncture / Unknown 04/05/2025 5:44 PM EDT 04/05/2025 6:19 PM EDT us Eva Ellis MD LAB BLOOD ORDERABLES Final Resul t Performing Organization Address City/[facility]/ZIP Co de Phone Number [facility] [address] [place] [address], [place] [phone] * Basic Metabolic Panel (BMP) (04/05/2025 5:44 PM EDT) Sodium 138 133 - 145 mmol/L LAB CHEMISTRY METHOD 04/05/2025 6:51 PM EDT [facility] Potassium 4.2 3.5 - 5.5 mmol/L LAB CHEMISTRY METHOD 04/05/2025 6:51 PM EDT [facility] Chloride 106 96 - 110 mmol/L LAB CHEMISTRY METHOD 04/05/2025 6:51 PM EDT [facility] CO2 25 21 - 32 mmol/L LAB CHEMISTRY METHOD 04/05/2025 6:51 PM EDT [facility] Anion Gap 7 3 - 11 LAB CHEMISTRY METHOD 04/05/2025 6:51 PM [facility] Glucose 79 70 - 100 mg/dL LAB CHEMISTRY METHOD 04/05/2025 6:51 PM EDT [facility] BUN 18 5 - 25 mg/dL LAB CHEMISTRY METHOD 04/05/2025 6:51 PM [facility] Creatinine 0.86 0.70 - 1.30 mg/dL LAB CHEMISTRY METHOD 04/05/2025 6:51 PM EDT [facility] eGFR 109 >=60 mL/min/1. 73m2 LAB CHEMISTRY METHOD 04/05/2025 6:51 PM EDT [facility] Comment:Calculation based on the Chronic Kidney Disease Epidemiology Collaboration (CKD-EPI) equation refit without adjustment for race. BUN/Creatinine Ratio 20.9 LAB CHEMISTRY METHOD 04/05/2025 6:51 PM [facility] Calcium 9.0 8.5 - 10.5 mg/dL LAB CHEMISTRY METHOD 04/05/2025 6:51 PM [facility] Blood Venous blood specimen / Unknown Venipuncture / Unknown 04/05/2025 5:44 PM EDT 04/05/2025 6:19 PM EDT us Eva Ellis MD LAB BLOOD ORDERABLES Final Resul t [facility] [address] [place] [address], [place] [phone] from Last 3 Months Insurance [facility] MEDICAID ADVANTAGE Care Teams Publication Specialist Relationship Specialty Start Date End Date Physician, Pcp Unknown PCP - General 04/05/25
[2025-04-08 14:33] LABS: Alanine Aminotransferase 52 U/L (0-40); Albumin Level 3.9 g/dL (3.5-5.0); Alkaline Phosphatase 60 U/L (39-117); Anion Gap 16 (12-20); Aspartate Amino Transferase 44 U/L (5-37); Blood Urea Nitrogen 6 mg/dL (9-16); Calcium 8.6 mg/dL (8.4-10.2); Carbon Dioxide 22 mmol/L (22-29); Chloride 110 mmol/L (96-108); Creatinine Clr Calc Pharmacy 107.6; Estimated Glomerular Filt Rate > 60; Magnesium 1.7 mg/dL (1.6-2.6); Potassium 4.0 mmol/L (3.3-5.1); Sodium 144 mmol/L (135-145); Total Protein 6.5 g/dL (6.5-8.0)
[2025-04-08 14:40] LABS: Lipase 27 U/L (8-78)
[2025-04-08] MEDS: diazePAM 10 MG/2 ML CARTRIDGE IVPUSH (16:01)
--- NOTE | 2025-04-08 16:10 | PC.NURSE ---
Patient with 10 second seizure witnessed by sitter. Medicated per aug , alert and oriented.
--- NOTE | 2025-04-08 16:56 | PHA.MEDREC ---
Pharmacy Consult ? Medication Reconciliation Pharmacy has completed the medication reconciliation. List from [facility]. Contacted [facility] to confirm med list
--- NOTE | 2025-04-08 16:58 | PC.NURSE ---
Pad witnessed 15 second episode of grabbing side rails on bed and shaking. MD at bedside, no new orders that this time
[2025-04-08 17:30] LABS: COVID-19 Test Negative (Negative); IDNOW Serial# 55D5AD1C; IDNOW Serial# 58CA691E; Influenza B2 Negative (Negative)
--- NOTE | 2025-04-08 17:53 | PM.IMHP ---
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 and Valium. Patient is poor historian history was taken with the help of flight control manager-patient says that he has multiple seizures multiple times in the day/almost every other day . He says he was not getting any seizure from last 8 months but last time he had seizure in February-went to [facility] please see below brief record review from [facility]. When asked to describe his seizure: He says some electrical activity towards the left side of the forehead going through his face and then he passes out after that. Denies any new complaint of chest pain or shortness of breath or abdominal pain or fever or chills or nausea or vomiting Denies any cough Denies any weakness or numbness. 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 At that time as per [facility] called records stated:She states that he takes his own medications but he takes them inconsistently. Subsequently patient was evaluated by crisis team-sent for inpatient level of psychiatric care. labs: CBC and BMP seems fine Labs reviewed-reviewed CBC fine, BMP seems fine. CTA head and cervical spine, CT face-seems fine. Review of Systems Review of Systems: As above. Yes all other systems are reviewed and are [facility] Medical History Hyperlipidemia Seizure disorder Schizophrenia Social History Alcohol intake: former Smoked in Last 30 Days: No Use of substances other than those prescribed or required for medical reasons: No Advance Directives: No Advance Directives Information Provided: Yes Meds Allergies Allergy/AdvReac Type Severity Reaction Status Date / Time ibuprofen Allergy Severe Anaphylaxis Verified 04/08/25 13:38 atorvastatin AdvReac Intermediate Abdominal Verified 04/08/25 13:38 Pain Active Medications: Current Medications Acetaminophen (Acetaminophen 325 Mg Tablet) 650 mg PO Q4H PRN PRN Reason: Pain (Scale Score 1-3) Al Hydroxide/Mg Hydroxide (Magnesium Hydrox/Alum Hydrox 30 Ml Oral.Susp) 30 ml PO QID PRN PRN Reason: GI Upset Albuterol Sulfate (Albuterol Sulfate 90 Mcg 8 Gm Inhaler) 2 puff INHALE BID PRN PRN Reason: Shortness of Breath Alprazolam (Alprazolam 0.5 Mg Tablet) 2 mg PO BID CLOVER Benzocaine (Throat Lozenge, Medicated Lozenge) 1 lozenge MUCOUS MEM Q2H PRN PRN Reason: Sore Throat Calcium Carbonate (Calcium Carbonate 750 Mg Tab.Chew) 750 mg PO Q4H PRN PRN Reason: Heartburn Diazepam (Diazepam 10 Mg/2 Ml Cartridge) 2.5 mg IVPUSH Q4H PRN PRN Reason: seizures Divalproex Sodium (Divalproex Sodium 500 Mg Tablet.Dr) 1,000 mg PO BID CLOVER Docusate Sodium (Docusate Sodium 100 Mg Capsule) 100 mg PO BID PRN PRN Reason: Constipation Guaifenesin (Guaifenesin La 600 Mg Tab.Er.12h) 1,200 mg PO BID PRN PRN Reason: Cough Hydroxyzine HCl (Hydroxyzine Hcl 50 Mg Tablet) 50 mg PO Q4H PRN PRN Reason: Anxiety Lactated Ringer's (Lr) 1,000 mls @ 80 mls/hr IVCONT .[id number] CLOVER Loperamide HCl (Loperamide Hcl 2 Mg Capsule) 2 mg PO Q4H PRN PRN Reason: Diarrhea Magnesium Hydroxide (Milk Of Magnesia 30 Ml Oral.Susp) 30 ml PO DAILY PRN PRN Reason: Constipation Melatonin (Melatonin 3 Mg Tablet) 3 mg PO BEDTIME PRN PRN Reason: Insomnia Naltrexone HCl (Naltrexone Hcl 50 Mg Tablet) 50 mg PO DAILY [place] Nicotine (Nicotine 21 Mg Patch.Td24) 21 mg TRANSDERMA DAILY PRN PRN Reason: Nicotine Cravings Nicotine Polacrilex (Nicotine Polacrilex 2 Mg Gum) 2 mg BUCCAL Q2H PRN PRN Reason: Nicotine Cravings Olanzapine (Olanzapine 5 Mg Tablet) 5 mg PO BEDTIME CLOVER Olanzapine (Olanzapine 5 Mg Tablet) 5 mg PO DAILY PRN PRN Reason: Psychosis Ondansetron HCl (Ondansetron Odt 4 Mg Tab.Rapdis) 4 mg TRANSLINGU Q6H PRN PRN Reason: Nausea and Vomiting Prazosin HCl (Prazosin Hcl 1 Mg Capsule) 2 mg PO BEDTIME CLOVER; Protocol Senna (Sennosides 8.6 Mg Tablet) 17.2 mg PO DAILY PRN PRN Reason: Constipation Sodium Chloride (0.9 % Sodium Chloride Flush 3 Ml Syringe) 3 ml IVFLUSH QSHIFT CLOVER Trazodone HCl (Trazodone Hcl 100 Mg Tablet) 100 mg PO BEDTIME [facility] Home Medications ?Medication ?Instructions ?Recorded ?Confirmed ?Last Taken ?Type acetaminophen 325 mg tablet 650 mg PO Q4H PRN Pain (Scale 04/08/25 04/08/25 Unknown History Score 1-3) albuterol sulfate 90 mcg/actuation 2 puff inhalation BID PRN 04/08/25 04/08/25 Unknown History aerosol inhaler Shortness Of Breath alprazolam 2 mg tablet 2 mg PO BID Anxiety 04/08/25 04/08/25 Unknown History aluminum-mag hydroxide-simethicone 30 ml PO QID PRN gi upset 04/08/25 04/08/25 Unknown History 200 mg-200 mg-20 mg/5 mL oral susp benzocaine 15 mg-menthol 3.6 mg 1 logan mucous membrane Q2H PRN Sore 04/08/25 04/08/25 Unknown History lozenges Throat calcium carbonate (Tums) 200 mg PO Q4H PRN Heartburn 04/08/25 04/08/25 Unknown History divalproex 500 mg tablet,delayed 1,000 mg PO BID 04/08/25 04/08/25 Unknown History release docusate sodium 100 mg capsule 100 mg PO BID PRN Constipation 04/08/25 04/08/25 Unknown History guaifenesin 600 mg tablet, 1,200 mg PO BID PRN Cough 04/08/25 04/08/25 Unknown History extended release 12 hr hydroxyzine pamoate 50 mg capsule 50 mg PO Q4H PRN Anxiety 04/08/25 04/08/25 Unknown History loperamide 2 mg capsule 2 mg PO Q4H PRN Diarrhea 04/08/25 04/08/25 Unknown History magnesium hydroxide 400 mg/5 mL 30 ml PO DAILY PRN Constipation 04/08/25 04/08/25 Unknown History oral suspension melatonin 3 mg tablet 3 mg PO BEDTIME PRN Insomnia 04/08/25 04/08/25 Unknown History naltrexone 50 mg tablet 50 mg PO DAILY 04/08/25 04/08/25 Unknown History nicotine (polacrilex) 2 mg gum 2 mg buccal Q2H PRN Nicotine 04/08/25 04/08/25 Unknown History Cravings nicotine 21 mg/24 hr daily 1 patch transdermal DAILY PRN 04/08/25 04/08/25 Unknown History transdermal patch Nicotine Cravings olanzapine 5 mg disintegrating 5 mg PO BEDTIME 04/08/25 04/08/25 Unknown History tablet olanzapine 5 mg disintegrating 5 mg PO DAILY PRN Psychosis 04/08/25 04/08/25 Unknown History tablet ondansetron 4 mg disintegrating 4 mg PO Q6H PRN Nausea And Vomiting 04/08/25 04/08/25 Unknown History tablet prazosin 2 mg capsule 2 mg PO BEDTIME 04/08/25 04/08/25 Unknown History sennosides 8.6 mg tablet (senna) 17.2 mg PO DAILY PRN Constipation 04/08/25 04/08/25 Unknown History trazodone 100 mg tablet 100 mg PO BEDTIME 04/08/25 04/08/25 Unknown History Physical Exam Vital Signs and Narrative: Vital Signs: Last Vital Signs Temp 99.1 F 04/08/25 16:58 Pulse 100 04/08/25 16:10 Resp 18 04/08/25 16:10 BP 109/76 04/08/25 16:10 Pulse Ox 97 04/08/25 16:10 O2 Del Method Room Air 04/08/25 16:10 BMI result Body Mass Index 25.8 Appearance: Alert.? Oriented , not indistress.? Eyes: Pupils equal, round and reactive to light.? Sclera nonicteric.? ENT: Pharynx normal.? Moist mucous membranes. cvs: rrr, [id number] , no murmur res: clear to auscultation ,no rhonchii or wheezing abd: no rebound or guarding ,nt, bs present. ext pulses present , no cyanosis . neuro: axo3 , nonfocal. Results Labs 04/08/25 13:43 04/08/25 13:43 Labs: Laboratory Results - last 24 hr 04/08/25 04/08/25 04/08/25 13:43 14:11 17:02 MCV 84.1 MCH 29.0 MCHC 34.4 RDW 13.6 Plt Count 181 MPV 10.2 Immature Gran % (Auto) 0.4 Neut % (Auto) 40.3 L Lymph % (Auto) 44.2 H Bee % (Auto) 11.2 H Eos % (Auto) 3.3 Baso % (Auto) 0.6 Lymph # (Auto) 2.1 Bee # (Auto) 0.5 Eos # (Auto) 0.2 Baso # (Auto) 0.0 Abs Immat Gran (auto) 0.02 Absolute Neuts (auto) 2.0 Absolute Nucleated RBC 0.000 Nucleated RBC % (auto) 0.0 Anion Gap 16 Estim Creat Clear Calc 107.6 Estimated GFR > 60 Random Glucose 140 H Calcium 8.6 D Magnesium 1.7 Total Bilirubin 0.2 Direct Bilirubin < 0.2 AST 44 H ALT 52 H Alkaline Phosphatase 60 Total Protein 6.5 Albumin 3.9 Lipase 27 Valproic Acid 67.6 Ethyl Alcohol < 10 COVID-19 (SACHIN) Negative COVID-19 Clin Com See Note Influenza Type A (KOLBY) Negative Influenza Type B (KOLBY) Negative Influenza A & B Note See Note Assessment and Plan (1) Intractable seizure disorder: Status: Acute Plan 44-year-old [place]ian-speaking male?with a history of alcohol use disorder currently in remission (clean for 10 years), PTSD, hyperlipidemia, depression, hepatitis C, prior PE, PNES on Depakote presents to the emergency department for seizure like activity-as per the ED physician patient had a seizure in the ED also for which she received Depakote p.o. and Valium. ? break through seizure: Received Depakote p.o. and IV Valium in ED. talking in full sentence, no tongue bite he was in [place] so likely medication was compliant Brain imaging as above seems negative Neuro checks, Neurology evaluation Continue home medication, IV fluid, IV diazepam p.r.n. if needed for seizures. PTSD/depression: Continue home medications DVT prophylaxis: SubQ Lovenox Patient will benefit for at least observation level of care considering question of breakthrough seizures-need neuro evaluation and neuro checks as well as monitor for any further seizures? Patient is full code. Above management discussed with the patient in detail length, time spent 70 minutes. Quality Stroke Does the patient have a stroke diagnosis?: No VTE Prior VTE?: No VTE Risk Level:: Medical - moderate - high VTE Device Contraindication: N/A - Device Ordered VTE Drug Contraindication: N/A - Med Ordered
[2025-04-08] MEDS: Lactated Ringers 1,000 ML 80 ML IVCONT (18:05)
--- NOTE | 2025-04-08 20:00 | PC.NURSE ---
patient changed over to ligature risk attire and belongings secured in juvencio port by dredge pump operator.
[2025-04-08] MEDS: Albuterol Sulfate 90 MCG 8 GM INHALER 2 PUFF INHALE (22:03)
--- NOTE | 2025-04-08 22:30 | PC.NURSE ---
patient reported he was feeling sob to [place]ul[place] FOFANA,was given prn inhaler which reported improved sx. stated he also feels anxious and usually uses cpap machine at night time. MD made aware and cpap ordered. PRN med given per aug. on cpap now by RT.
--- NOTE | 2025-04-08 22:36 | PC.NURSE ---
Late entry for 2199 RN walking by and noted the pt's call roman to be on and him saying breathing in [place]. RN requested the assistance of nearby rn staff to communicate with the patient. His O2 sat was 98% on room air however he reports feeling short of breath and as if he cannot breath. The pt was conversing in full/complete sentences and appeared as though he was holding his breath while speaking vs gasping or working to breath. He had no increased work of breathing noted, LS assessment was limited as patient was noted to hold his breath between breaths however there were no I/E wheezes noted. RN provided pt with inhaler per AUG and provided verbal reassurance. Pt awaiting CPAP application by respiratory
[2025-04-09 00:09] VITALS: PULSE 80; RESP 17; O2SAT 97
[2025-04-09 01:16] VITALS: BP 126/67; PULSE 81; RESP 20; TEMP 36.9; O2SAT 99
[2025-04-09 03:09] LABS: Appearance Urine Clear; Glucose Urine UA Negative (Negative); PH 6.0 (5.0-9.0); Specific Gravity - Urine <= 1.005 (1.005-1.025)
[2025-04-09 03:24] LABS: Cannabinoid Screen Urine Not Detected (Not Detect)
--- NOTE | 2025-04-09 03:38 | PC.NURSE ---
patient requested a phone to call friend and got upset when no one answered. got oob attempting to take off monitor/gown, redirectable. staffing and scheduling coordinator at bedside. states he is frustrated that this person is not answering their call. made patient aware it is almost 4 am and they are likely sleeping. pt verbalized agreement and stated he did not realize it was 4 am. patient answered other questions appropriately at this time and is axox4. pt requested medication to help him calm down, prn hydroxyzine available.
[2025-04-09] MEDS: Lactated Ringers 1,000 ML 80 ML IVCONT (06:53)
[2025-04-09 07:11] VITALS: BP 116/78; PULSE 82; RESP 16; TEMP 36.9; O2SAT 98
[2025-04-09] MEDS: 0.9 % Sodium Chloride Flush 3 ML SYRINGE IVFLUSH (08:54)
--- NOTE | 2025-04-09 10:26 | P.CNNE_ITS ---
History of Present Illness Data of Consult Service Date: 04/09/25 Primary Care Provider: Unknown Physician HPI Reason for consult: Seizure disorder 44 years old man with undefined seizure disorder. Reading his previous history, it seems like that he used to drink alcohol but not for last many years, had a diagnosis of PTSD and nonepileptic seizures, came to hospital after but look like a seizure and apparently had another 1 in ER and received treatment for that. When I saw him, he was fully alert and awake wanted to go home. There was no sign of any physical injury. He probably used to go to [facility] in his previous testing results were not available. Review of Systems 2 Review of Systems: Constitutional:?No fever, chills, fatigue, weight loss, or night sweats. HEENT:?No headache, vision changes, hearing loss, nasal congestion, sore throat. Cardiovascular:?No chest pain, palpitations, orthopnea, PND, or leg swelling. Respiratory:?No cough, shortness of breath, wheezing, or hemoptysis. Gastrointestinal:?No nausea, vomiting, abdominal pain, diarrhea, or constipation. Genitourinary:?No dysuria, frequency, incontinence, or hematuria. Musculoskeletal:?No joint pain, stiffness, weakness, or muscle aches. Neurological:? Recent seizure-like episodes Endocrine:?No heat/cold intolerance, polydipsia, polyuria, or hair/skin changes. Hematologic/Lymphatic:?No easy bruising, bleeding, or lymphadenopathy. Integumentary (Skin):?No rash, lesions, itching, or color changes. Allergic/Immunologic:?No seasonal allergies, hives, or recurrent infections. [facility] Past Medical History Medical History Hyperlipidemia Seizure disorder Schizophrenia Social History Social History Alcohol intake: former Smoked in Last 30 Days: No Use of substances other than those prescribed or required for medical reasons: No Advance Directives: No Advance Directives Information Provided: Yes Meds Allergies Allergy/AdvReac Type Severity Reaction Status Date / Time ibuprofen Allergy Severe Anaphylaxis Verified 04/08/25 13:38 atorvastatin AdvReac Intermediate Abdominal Verified 04/08/25 13:38 Pain Active Medications: Current Medications Acetaminophen (Acetaminophen 325 Mg Tablet) 650 mg PO Q4H PRN PRN Reason: Pain (Scale Score 1-3) Last Admin: 04/09/25 08:53 Dose: 650 mg Al Hydroxide/Mg Hydroxide (Magnesium Hydrox/Alum Hydrox 30 Ml Oral.Susp) 30 ml PO QID PRN PRN Reason: GI Upset Albuterol Sulfate (Albuterol Sulfate 90 Mcg 8 Gm Inhaler) 2 puff INHALE BID PRN PRN Reason: Shortness of Breath Last Admin: 04/08/25 22:03 Dose: 2 puff Alprazolam (Alprazolam 0.5 Mg Tablet) 2 mg PO BID [facility] Last Admin: 04/09/25 08:54 Dose: 2 mg Benzocaine (Throat Lozenge, Medicated Lozenge) 1 lozenge MUCOUS MEM Q2H PRN PRN Reason: Sore Throat Calcium Carbonate (Calcium Carbonate 750 Mg Tab.Chew) 750 mg PO Q4H PRN PRN Reason: Heartburn Diazepam (Diazepam 10 Mg/2 Ml Cartridge) 2.5 mg IVPUSH Q4H PRN PRN Reason: seizures Divalproex Sodium (Divalproex Sodium 500 Mg Tablet.Dr) 1,000 mg PO BID [facility] Last Admin: 04/09/25 08:53 Dose: 1,000 mg Docusate Sodium (Docusate Sodium 100 Mg Capsule) 100 mg PO BID PRN PRN Reason: Constipation Enoxaparin Sodium (Enoxaparin Sodium 40 Mg/0.4 Ml Syringe) 40 mg SUBCUT Q24H [facility] Last Admin: 04/08/25 20:31 Dose: 40 mg Guaifenesin (Guaifenesin La 600 Mg Tab.Er.12h) 1,200 mg PO BID PRN PRN Reason: Cough Hydroxyzine HCl (Hydroxyzine Hcl 50 Mg Tablet) 50 mg PO Q4H PRN PRN Reason: Anxiety Last Admin: 04/09/25 03:46 Dose: 50 mg Lactated Ringer's (Lr) 1,000 mls @ 80 mls/hr IVCONT .[id number] [facility] Last Admin: 04/09/25 06:53 Dose: 80 mls/hr Loperamide HCl (Loperamide Hcl 2 Mg Capsule) 2 mg PO Q4H PRN PRN Reason: Diarrhea Magnesium Hydroxide (Milk Of Magnesia 30 Ml Oral.Susp) 30 ml PO DAILY PRN PRN Reason: Constipation Melatonin (Melatonin 3 Mg Tablet) 3 mg PO BEDTIME PRN PRN Reason: Insomnia Naltrexone HCl (Naltrexone Hcl 50 Mg Tablet) 50 mg PO DAILY [facility] Last Admin: 04/09/25 08:53 Dose: 50 mg Nicotine (Nicotine 21 Mg Patch.Td24) 21 mg TRANSDERMA DAILY PRN PRN Reason: Nicotine Cravings Nicotine Polacrilex (Nicotine Polacrilex 2 Mg Gum) 2 mg BUCCAL Q2H PRN PRN Reason: Nicotine Cravings Last Admin: 04/08/25 21:01 Dose: 2 mg Olanzapine (Olanzapine 5 Mg Tablet) 5 mg PO BEDTIME [facility] Last Admin: 04/08/25 20:32 Dose: 5 mg Olanzapine (Olanzapine 5 Mg Tablet) 5 mg PO DAILY PRN PRN Reason: Psychosis Ondansetron HCl (Ondansetron Odt 4 Mg Tab.Rapdis) 4 mg TRANSLINGU Q6H PRN PRN Reason: Nausea and Vomiting Prazosin HCl (Prazosin Hcl 1 Mg Capsule) 2 mg PO BEDTIME [facility]; Protocol Last Admin: 04/08/25 21:01 Dose: 2 mg Senna (Sennosides 8.6 Mg Tablet) 17.2 mg PO DAILY PRN PRN Reason: Constipation Sodium Chloride (0.9 % Sodium Chloride Flush 3 Ml Syringe) 3 ml IVFLUSH QSHIFT [facility] Last Admin: 04/09/25 08:54 Dose: 3 ml Trazodone HCl (Trazodone Hcl 100 Mg Tablet) 100 mg PO BEDTIME [facility] Last Admin: 04/08/25 20:31 Dose: 100 mg Home Medications ?Medication ?Instructions ?Recorded ?Confirmed ?Last Taken ?Type acetaminophen 325 mg tablet 650 mg PO Q4H PRN Pain (Sc hiral 04/08/25 04/08/25 Unknown History Score 1-3) albuterol sulfate 90 mcg/actuation 2 puff inhalation B ID PRN 04/08/25 04/08/25 Unknown History aerosol inhaler Shortness Of Breath alprazolam 2 mg tablet 2 mg PO BID Anxiety 04/08/25 04/08/25 Unknown History aluminum-mag hydroxide-simethicone 30 ml PO QID PRN gi upset 04/08/25 04/08/25 Unknown History 200 mg-200 mg-20 mg/5 mL oral susp benzocaine 15 mg-menthol 3.6 mg 1 logan mucous membrane Q2H PRN Sore 04/08/25 04/08/25 Unknown History lozenges Throat calcium carbonate (Tums) 200 mg PO Q4H PRN Heartburn 04/08/25 04/08/25 Unknown History divalproex 500 mg tablet,delayed 1,000 mg PO BID 04/0804/08/25 Unknown History release docusate sodium 100 mg capsule 100 mg PO BID PRN Const ipation 04/08/25 04/08/25 Unknown History guaifenesin 600 mg tablet, 1,200 mg PO BID PRN Cough 1 04/08/25 Unknown History extended release 12 hr hydroxyzine pamoate 50 mg capsule 50 mg PO Q4H PRN Anx iety 04/08/25 04/08/25 Unknown History loperamide 2 mg capsule 2 mg PO Q4H PRN Diarrhea 04/08/25 Unknown History magnesium hydroxide 400 mg/5 mL 30 ml PO DAILY PRN Con stipation 04/08/25 04/08/25 Unknown History oral suspension melatonin 3 mg tablet 3 mg PO BEDTIME PRN Insomnia 04/08/25 04/08/25 Unknown History naltrexone 50 mg tablet 50 mg PO DAILY 04/08/2503/21 Unknown History nicotine (polacrilex) 2 mg gum 2 mg buccal Q2H PRN Reynaldo otine 04/08/25 04/08/25 Unknown History Cravings nicotine 21 mg/24 hr daily 1 patch transdermal DAILY P RN 04/08/25 04/08/25 Unknown History transdermal patch Nicotine Cravings olanzapine 5 mg disintegrating 5 mg PO BEDTIME 5 04/08/25 Unknown History tablet olanzapine 5 mg disintegrating 5 mg PO DAILY PRN Psych osis 04/08/25 04/08/25 Unknown History tablet ondansetron 4 mg disintegrating 4 mg PO Q6H PRN Nausea And Vomiting 04/08/25 04/08/25 Unknown History tablet prazosin 2 mg capsule 2 mg PO BEDTIME 04/08/25 Unknown History sennosides 8.6 mg tablet (senna) 17.2 mg PO DAILY PRN Constipation 04/08/25 04/08/25 Unknown History trazodone 100 mg tablet 100 mg PO BEDTIME 04/08/25 1 Unknown History Physical Exam 2 Vital Signs: Vital Signs: Last Vital Signs Temp 98.4 F 04/09/25 07:11 Pulse 82 04/09/25 07:11 Resp 16 04/09/25 07:11 BP 116/78 04/09/25 07:11 Pulse Ox 98 04/09/25 07:11 O2 Del Method Room Air 04/09/25 07:11 BMI result Body Mass Index 25.8 Neuro: Other: Mental Status: Alert and oriented to person, place, and time. Normal attention. Normal spontaneous speech, fluency, and comprehension. Cranial Nerves: CN II: Visual bennett full to confrontation, visual acuity intact. CN III, IV, : Pupils equal, round, reactive to light and accommodation. Extraocular movements are normal. CN V: Facial sensation is normal. CN VII: Facial movements symmetrical. CN VIII: Hearing intact to bedside conversation is normal. CN IX, X: Palate elevates symmetrically. CN XI: Shoulder shrug and head turn symmetrical. CN XII: Tongue midline without atrophy or fasciculations. Motor: Bulk and tone normal in all extremities. No significant muscle weakness in arms and legs. No drift. Reflexes: Deep tendon reflexes 1+ and symmetric. Plantar response down-going bilaterally. Extrapyramidal: Full facial expressions and blinking. No rigidity. Movements are appropriate with no tremor or abnormality. Speech: Normal; no dysarthria or tremor. Results Labs 04/08/25 13:43 04/08/25 13:43 Labs: Short CBC 04/08/25 Range/Units 13:43 WBC 4.8 (4.8-10.8) X10*3/uL Hgb 12.6 L (14.0-18.0) g/dl Hct 36.6 L (42.0-52.0) % Plt Count 181 (160-400) X10*3/uL BMP 04/08/25 13:43 Sodium 144 Potassium 4.0 Chloride 110 H Carbon Dioxide 22 BUN 6 L Creatinine 0.81 Calcium 8.6 D Liver Function 04/08/25 Range/Units 13:43 Total Bilirubin 0.2 (0.0-1.0) mg/dL Direct Bilirubin < 0.2 (0.0-0.5) mg/dL AST 44 H (5-37) U/L ALT 52 H (0-40) U/L Alkaline Phosphatase 60 (39-117) U/L Albumin 3.9 (3.5-5.0) g/dL Urine 04/09/25 Range/Units 03:00 Urine Color Yellow Urine Appearance Clear Urine pH 6.0 (5.0-9.0) Ur Specific [place] <= 1.005 (1.005-1.025) Urine Protein Negative (Neg-Trace) mg/dL Urine Glucose (UA) Negative (Negative) mg/dL His head CT revealed mild cortical atrophy more so on left side than right. 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 In addition, he continues to have seizure-like episodes and came here with same complaint. Now he was back to baseline. Exact nature and etiology of these spells is unclear. His elementary neurological examination is nonfocal but his head CT, for his age group, revealed changes that put him at risk for neuropsychiatric syndrome including behavioral disorder. Changes noted on his head CT might be due to excessive history of alcohol use, if that was the case, or might be genetic in origin. If not done before, I recommend at least a noncontrast MRI of brain and EEG evaluation. These investigations can be done as an outpatient. Procedures Date of Service Date of Service: 04/09/25
[2025-04-09 11:40] VITALS: BP 136/56; PULSE 106; RESP 18; TEMP 36.5; O2SAT 96
--- NOTE | 2025-04-09 11:45 | PC.NURSE ---
anxious, states he though he was leaving [facility], not always making sense when speaking with back filler operator, prn's offered and accepted by pt, skin wpd, alert, sitter at [facility]
--- NOTE | 2025-04-09 13:45 | PC.NURSE ---
pt pulled out IV, increasingly agitated, anxious, exit seeking requiring frequent redirection. provider notified.
--- NOTE | 2025-04-09 13:55 | MHC.CM.PN ---
Sharonda 04/09/25, Pt came to hosp from [facility] facility. He does not know his PCP, he goes to [facility] in [place]. For DME, he has a cane, he is SSO, his girlfriend was bedside, and she speaks Wolof. Pt. said that his DCP is to go back to [facility]. Care team to assist with DCP. CM to follow for DC needs.
--- NOTE | 2025-04-09 14:36 | MHC.CARE ---
Patient evaluated by the CARE Team, he does not require an inpatient psychiatric admission at this time and will follow up with his outpatient providers this week. Dr. Salcedo updated with plan.
--- NOTE | 2025-04-09 14:48 | P.DS_ITS ---
DS: Providers Provider Date of Service: 04/09/25 Date of admission: 04/08/25 17:16 Date of discharge: 04/09/25 Primary care physician: Unknown Physician Consults: 04/08/25 17:19 Consult to Neurology Routine Consulting Provider: [facility] Reason for consultation: breakthrough seizure 04/09/25 11:32 Inpt CARE Team Crisis Consult Stat Comment: Reason for consultation: pt was at [facility], came on sect 21 but was admitted. 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 and Valium. Patient is poor historian history was taken with the help of pastry chef-patient says that he has multiple seizures multiple times in the day/almost every other day . He says he was not getting any seizure from last 8 months but last time he had seizure in February-went to [facility] please see below brief record review from [facility]. When asked to describe his seizure: He says some electrical activity towards the left side of the forehead going through his face and then he passes out after that. Denies any new complaint of chest pain or shortness of breath or abdominal pain or fever or chills or nausea or vomiting Denies any cough Denies any weakness or numbness. 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 At that time as per [facility] called records stated:She states that he takes his own medications but he takes them inconsistently. Subsequently patient was evaluated by crisis team-sent for inpatient level of psychiatric care. labs: CBC and BMP seems fine Labs reviewed-reviewed CBC fine, BMP seems fine. CTA head and cervical spine, CT face-seems fine. hospital course: While getting treatment Psych hospital at [facility], patient had a breakthrough seizure and was brought to the hospital and has been stable since, he claims he is compliant with all meds. Neuro saw him and recommends MRI and EEG, however patient doesn't want to wait in the hospital and prefers getting these done on outpatient basis. He is instructed not to drive, or operating heavy machinery or swiming alone, these instructions were given to him in the presence of the Time Attestation Discharge Coordination Time (in mins): 45 Quality: Safe Use of Opioids Does Pt have an Active Cancer Diagnosis on the Problem List?: No Quality: Stroke Does the patient have a stroke diagnosis?: No Physical Exam Vital Signs: Vital Signs: Last Vital Signs Temp 97.7 F 04/09/25 11:40 Pulse 106 H 04/09/25 11:40 Resp 18 04/09/25 11:40 BP 136/56 L 04/09/25 11:40 Pulse Ox 96 04/09/25 11:40 O2 Del Method Room Air 04/09/25 11:40 BMI result Body Mass Index 25.8 DS: Data Data Completed and Pending Labs on day of discharge: Laboratory Results - last 24 hr 04/08/25 04/09/25 17:02 03:00 Urine Color Yellow Urine Appearance Clear Urine pH 6.0 Ur Specific [place] <= 1.005 Urine Protein Negative Urine Glucose (UA) Negative Urine Ketones Negative Urine Blood Negative Urine Nitrite Negative Ur Leukocyte Esterase Negative Urine Opiates Screen Not Detected Ur Buprenorphine Scrn Not Detected Ur Oxycodone Screen Not Detected Urine Methadone Screen Not Detected Urine Fentanyl Screen Not Detected Ur Barbiturates Screen Not Detected Ur Phencyclidine Scrn Not Detected Ur Amphetamines Screen Not Detected U Benzodiazepines Scrn POSITIVE H Urine Cocaine Screen Not Detected U Marijuana (THC) Screen Not Detected COVID-19 (SACHIN) Negative COVID-19 Clin Com See Note Influenza Type A (KOLBY) Negative Influenza Type B (KOLBY) Negative Influenza A & B Note See Note Discharge Plan Discharge Anticipated Discharge Date/Time: 04/09/25 14:37 Patient Disposition: Home, Self-Care Discharge Diagnosis: Breakthrough Seizure Referrals: Physician,Unknown J [Primary Care Provider, Medical] - 1 Week Discharge Medications: Continued sennosides [senna] 8.6 mg Tablet 17.2 mg PO DAILY PRN (Reason: Constipation) acetaminophen 325 mg Tablet 650 mg PO Q4H PRN (Reason: Pain (Scale Score 1-3)) loperamide 2 mg Capsule 2 mg PO Q4H PRN (Reason: Diarrhea) Rx Instructions: administer after each loose stool until symptoms controlled; do not exceed 8 mg per 24 hrs nicotine (polacrilex) 2 mg Gum 2 mg BUCCAL Q2H PRN (Reason: Nicotine Cravings) naltrexone 50 mg tablet 50 mg PO DAILY hydroxyzine pamoate 50 mg Capsule 50 mg PO Q4H PRN (Reason: Anxiety) melatonin 3 mg Tablet 3 mg PO BEDTIME PRN (Reason: Insomnia) divalproex 500 mg tablet,delayed release (DR/EC) 1,000 mg PO BID magnesium hydroxide 400 mg/5 mL Suspension 30 ml PO DAILY PRN (Reason: Constipation) trazodone 100 mg tablet 100 mg PO BEDTIME calcium carbonate [Tums] 200 mg calcium (500 mg) Tablet,Chewable 200 mg PO Q4H PRN (Reason: Heartburn) nicotine 21 mg/24 hr Patch 24 Hour 1 patch TRANSDERMAL DAILY PRN (Reason: Nicotine Cravings) docusate sodium 100 mg Capsule 100 mg PO BID PRN (Reason: Constipation) alprazolam 2 mg tablet 2 mg PO BID alum-mag hydroxide-simeth 200-200-20 mg/5 mL Suspension 30 ml PO QID PRN (Reason: gi upset) Rx Instructions: administer between meals and at bedtime albuterol sulfate 90 mcg/actuation Hfa Aerosol Inhaler 2 puff INHALATION BID PRN (Reason: Shortness Of Breath) ondansetron 4 mg Tablet,Disintegrating 4 mg PO Q6H PRN (Reason: Nausea And Vomiting) prazosin 2 mg capsule 2 mg PO BEDTIME olanzapine 5 mg Tablet,Disintegrating 5 mg PO DAILY PRN (Reason: Psychosis) olanzapine 5 mg Tablet,Disintegrating 5 mg PO BEDTIME benzocaine-menthol 15-3.6 mg Lozenge 1 logan MUCOUS MEMBRANE Q2H PRN (Reason: Sore Throat) guaifenesin 600 mg Tablet Extended Release 12hr 1,200 mg PO BID PRN (Reason: Cough) Discharge Orders: Discharge Order (Routine); Ordered 04/09/25 Ordered By: Robert [facility] Diet: Advance to usual diet Activity on Discharge: As tolerated Stand Alone Forms: Patient Portal Discharge page Print Language: Malian Other Ambulatory Orders: MR head/brain wo con (Routine) Timeframe: 1 Week Facility: [facility] - Location: MRI Ordered By: Robert Salcedo EEG Routine (Routine) Timeframe: 1 Week Facility: [facility] - Location: Radiology Ordered By: Robert Salcedo Care Plan Goals: recovery from breakthrough seizure Health Concerns: seizure Plan of Treatment: continue taking all your medications as before and follow up with your Doctor in a week You are to return to the hospital to get MRI and EEG done, the department will g jackeline you a call Assessment: see above
[2025-04-12 08:03] LABS: Levetiracetam Keppra <2.0 mcg/mL (6.0-46.0)
== END 2025-04-09 15:25 | disposition home or self-care (01) ==
LOC: HO.ED 16:31 → HO.EDOVER 17:30
PROVIDERS: Admitting Provider Internal Medicine; Emergency Provider Emergency Medicine; Visit Provider Internal Medicine
DX: G40.919 Epilepsy, unspecified, intractable, without status epilepticus (principal); R51.9 Headache, unspecified; M54.2 Cervicalgia; S09.90XA Unspecified injury of head, initial encounter; W19.XXXA Unspecified fall, initial encounter; Y93.9 Activity, unspecified; Y92.9 Unspecified place or not applicable; Y99.9 Unspecified external cause status; F43.10 Post-traumatic stress disorder, unspecified; F32.A Depression, unspecified; Z79.899 Other long term (current) drug therapy; Z03.818 Encounter for observation for suspected exposure to other biological agents ruled out
CPT/HCPCS: 36415; 70450; 70486; 72125; 80048; 80076; 80164; 80177; 80307; 81003; 83690; 83735; 85025; 87502; 87635; 93005; 94660; 96361; 96372; 96374; 99285; J1650; J3360; J7120; S9485

== ENCOUNTER → 2025-04-08 13:53 | Outpatient (BNV) | payer OTHER, SELFPAY | PROVIDERS: Emergency Provider Emergency Medicine; Visit Provider Radiology Diagnostic Radiology | DX: G40.89 Other seizures (principal); J32.2 Chronic ethmoidal sinusitis | CPT/HCPCS: 70450; 70486; 72125 ==

== ENCOUNTER → 2025-04-08 13:55 | Outpatient (BNV) | payer OTHER, SELFPAY | PROVIDERS: Admitting Provider Internal Medicine; Emergency Provider Emergency Medicine; Visit Provider Internal Medicine Cardiovascular Disease | DX: R00.0 Tachycardia, unspecified (principal) | CPT/HCPCS: 93010 ==

== ENCOUNTER → 2025-04-08 17:16 | Outpatient (BNV) | payer OTHER, SELFPAY | PROVIDERS: Admitting Provider Internal Medicine; Emergency Provider Emergency Medicine; Visit Provider Psychiatry & Neurology Neurology | DX: F48.9 Nonpsychotic mental disorder, unspecified (principal) | CPT/HCPCS: 99223 ==

== ENCOUNTER → 2025-04-08 17:16 | Outpatient (BNV) | payer OTHER, SELFPAY | PROVIDERS: Admitting Provider Internal Medicine; Emergency Provider Emergency Medicine; Visit Provider Internal Medicine | DX: F48.9 Nonpsychotic mental disorder, unspecified (principal) | CPT/HCPCS: 99222; 99239 ==